=== PATIENT | female | born 1970 | race Caucasian/White ===

== ENCOUNTER 2017-09-21 11:38 | Day surgery (SDC) | payer BC ==
[~2017-09-21 11:38] MED LIST: Bisacodyl 5 MG Tab PO PRN; Ketorolac 30 MG/ML SDV ONE; Lactated Ringers 1,000 ML IV SCH; Lactated Ringers 1,000 ML ONE; Lidocaine 1%/Sod Bicarbonate in NS 8.4% 1 ML Syringe IV PRN; Magnesium Hydroxide 400 MG/5 ML Susp 30 ML Cup PO PRN; Midazolam 1 MG/ML 2 ML SDV ONE; Morphine 2 MG/ML Syringe IVPUSH PRN; Morphine 8 MG, EPINEPHrine 0.3 MG, Cefuroxime 750 MG, Ketorolac 30 MG, Sodium Chloride ... ONE; Morphine PF 1 MG/ML Amp ONE; Naloxone 0.4 MG/ML SDV IVPUSH PRN; Ondansetron 4 MG/2 ML SDV IVPUSH PRN; Propofol 200 MG/20 ML SDV ONE; Sennosides 8.6 MG Tab PO PRN; Sodium Chloride 0.9% 10 ML Syringe FLUSH PRN; ceFAZolin 1 GM Vial ONE; diphenhydrAMINE 50 MG/ML SDV IVPUSH PRN; fentaNYL 100 MCG/2 ML SDV ONE
[2017-09-21] MEDS ORDERED: Vancomycin 1 GM SDV ONE (11:56)
[2017-09-21] MEDS ORDERED: Iodine/Sodium Iodide 2% Tincture 30 ML Bottle ONE (11:57)
[2017-09-21] MEDS ORDERED: ceFAZolin 1 GM Vial ONE (11:57)
[2017-09-21] MEDS ORDERED: Bupivacaine 0.25% 30 ML SDV ONE (11:57)
[2017-09-21] MEDS ORDERED: Ketorolac 15 MG/ML SDV IVPUSH PRN (12:00)
--- NOTE | 2017-09-21 12:22 | PCM.PREANE ---
Preanesthetic Assessment - Anesthesia/Transfusion/Family Hx Anesthesia History: Prior Anesthesia Without Reaction Family History of Anesthesia Reaction: No Transfusion History: Prior Transfusion Without Reaction Intubation History: Unknown - Review of Systems General: No Symptoms Pulmonary: No Symptoms Cardiovascular: No Symptoms (History of HTN), Dyspnea on Exertion Gastrointestinal: No Symptoms (History of hiatal hernia/recent UTI treated with macrobid.) Neurological: No Symptoms Other: Reports: Thyroid Problems (history of hypothyroidism), Anxiety - Physical Assessment NPO Status Date: 09/20/17 NPO Status Time: 05:45 Pulse: 93 O2 Sat by Pulse Oximetry: 97 Respiratory Rate: 20 Blood Pressure: 115/88 Temperature: 36.9 C Height: 1.52 m Weight: 110 kg ASA Class: 2 Mental Status: Alert & Oriented x3 Airway Class: Mallampati = 3 Dentition: Reports: Normal Dentition, Missing Tooth/Teeth (left bottom), Caries Thyro-Mental Finger Breadths: 3 Mouth Opening Finger Breadths: 3 ROM/Head Extension: Full Lungs: Clear to Auscultation, Normal Respiratory Effort Cardiovascular: Regular Rate, Regular Rhythm, No Murmurs - Lab Values: Laboratory Last Values Urine HCG, Qual Negative (NEGATIVE) 09/21/17 11:48 MRSA screen negative. hgb= 12.4 hct=34.1 drpitivos=380,000 All lab values reviewed and noted and within acceptable ranges to proceed with scheduled procedure. - Imaging/EKG Impressions: EKG: SR rate= 99 - Allergies Allergies/Adverse Reactions: Allergies Allergy/AdvReac Type Severity Reaction Status Date / Time No Known Allergies Allergy Verified 09/18/17 11:57 - Anesthesia Plan Pre-Op Medication Ordered: None, Beta Paul Beta Paul: Other (bystolic) Med Last Dose Date: 09/20/17 Med Last Dose Time: 20:00 - Acknowledgements Anesthesia Type Planned: Spinal (Left femoral nerve block within adductor canal under US guidance for post operative pain control requested by Dr. 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: Endometrial Ablation, Endometriosis Musculoskeletal History: Reports: None Neurological History: Reports: None Psychiatric History: Reports: Anxiety, OCD Endocrine/Metabolic History: Reports: Hypothyroidism Hematologic History: Reports: None Immunologic History: Reports: None Oncologic (Cancer) History: Reports: None Dermatologic History: Reports: None - Past Surgical History Head Surgeries/Procedures: Reports: None HEENT Surgical History: Reports: Myringotomy w Tube(s) Cardiovascular Surgical History: Reports: None Respiratory Surgical History: Reports: None GI Surgical History: Reports: Cholecystectomy Female Surgical History: Reports: Section, Tubal Ligation Male Surgical History: Reports: None Endocrine Surgical History: Reports: None Neurological Surgical History: Reports: None Musculoskeletal Surgical History: Reports: Arthroscopic Knee Oncologic Surgical History: Reports: None Dermatological Surgical History: Reports: None - SUBSTANCE USE Smoking Status *Q: Never Smoker Second Hand Smoke Exposure: No Recreational Drug Use History: No - HOME MEDS Home Medications: Home Meds ALPRAZolam [Alprazolam] 1 mg PO BID PRN 09/18/17 [History] Levothyroxine [Synthroid] 50 mcg PO DAILY 09/18/17 [History] Nebivolol [Bystolic] 5 mg PO BEDTIME 09/18/17 [History] Zolpidem Tartrate [Zolpidem Tartrate] 10 mg PO BEDTIME 09/18/17 [History] - CURRENT (IN HOUSE) MEDS Current Meds: Current Medications Aspirin (Ecotrin) 325 mg PO BID WILFRID Bisacodyl (Dulcolax) 5 mg PO DAILY PRN PRN Reason: Constipation Cyclobenzaprine HCl (Flexeril) 10 mg PO TID PRN PRN Reason: Spasms Diphenhydramine HCl (Benadryl) 25 mg IVPUSH Q4H PRN PRN Reason: Nausea Docusate Sodium (Colace) 100 mg PO BID WILFRID Famotidine (Pepcid) 20 mg PO Q12H WILFRID Lactated Ringer's (Ringers, Lactated) 1,000 mls @ 125 mls/hr IV ASDIRECTED WILFRID Stop: 09/21/17 23:00 Cefazolin Sodium/Dextrose 2 gm (/ Premix) 50 mls @ 100 mls/hr IV Q8H WILFRID Stop: 09/22/17 08:29 Ketorolac Tromethamine (Toradol) 15 mg IVPUSH Q6H PRN PRN Reason: Pain Lidocaine/Sodium Bicarbonate (Buffered Lidocaine 1% In Ns 8.4%) 0.25 ml IV ONETIME PRN PRN Reason: Prior to IV Start Stop: 09/21/17 18:00 Magnesium Hydroxide (Milk Of Magnesia) 30 ml PO BID PRN PRN Reason: Constipation Morphine Sulfate (Morphine) 2 mg IVPUSH Q2H PRN PRN Reason: Breakthrough Pain Naloxone HCl (Narcan) 0.1 mg IVPUSH Q5M PRN PRN Reason: Oversedation Ondansetron HCl (Zofran) 4 mg IVPUSH Q6H PRN PRN Reason: Nausea/Vomiting Oxycodone/Acetaminophen (Percocet 325-5 Mg) 1 - 2 tab PO Q4H PRN PRN Reason: Pain Senna (Senna) 8.6 mg PO BID PRN PRN Reason: Constipation Sodium Chloride (Saline Flush) 10 ml FLUSH ASDIRECTED PRN PRN Reason: Keep Vein Open Stop: 09/21/17 18:00 Discontinued Medications Bupivacaine HCl (Marcaine 0.25%) Confirm Administered Dose 30 ml .ROUTE .STK- MED ONE Stop: 09/21/17 11:58 Cefazolin Sodium (Ancef) Confirm Administered Dose 2 gm .ROUTE .STK-MED ONE Stop: 09/21/17 07:49 Cefazolin Sodium (Ancef) Confirm Administered Dose 2 gm .ROUTE .STK-MED ONE Stop: 09/21/17 11:58 Morphine Sulfate 8 mg/Epinephrine HCl 0.3 mg/Cefuroxime Sodium 750 mg/Ketorolac Tromethamine 30 mg/Sodium Chloride 27.9 ml 0 mg .XX ONETIME ONE Stop: 09/21/17 06:53 Fentanyl (Sublimaze) Confirm Administered Dose 100 mcg .ROUTE .STK-MED ONE Stop: 09/21/17 07:49 Lidocaine HCl (Xylocaine-Mpf 1%) Confirm Administered Dose 10 mls @ as directed .ROUTE .STK-MED ONE Stop: 09/21/17 07:49 Lactated Ringer's (Ringers, Lactated) Confirm Administered Dose 1,000 mls @ as directed .ROUTE .STK-MED ONE Stop: 09/21/17 07:49 Iodine (Iodine 2% Mild Tincture) Confirm Administered Dose 30 ml .ROUTE .STK- MED ONE Stop: 09/21/17 11:58 Ketorolac Tromethamine (Toradol) Confirm Administered Dose 30 mg .ROUTE .STK- MED ONE Stop: 09/21/17 07:49 Midazolam HCl (Versed 1 Mg/Ml) Confirm Administered Dose 2 mg .ROUTE .STK-MED ONE Stop: 09/21/17 07:49 Morphine Sulfate (Duramorph Pf) Confirm Administered Dose 1 mg .ROUTE .STK-MED ONE Stop: 09/21/17 07:27 Propofol (Diprivan 20 Ml) Confirm Administered Dose 400 mg .ROUTE .STK-MED ONE Stop: 09/21/17 07:49 Tranexamic Acid (Cyklokapron) Confirm Administered Dose 1,000 mg .ROUTE .STK- MED ONE Stop: 09/21/17 11:57 Vancomycin HCl (Vancomycin) Confirm Administered Dose 1 gm .ROUTE .STK-MED ONE Stop: 09/21/17 11:57
[2017-09-21] MEDS ORDERED: Midazolam 1 MG/ML 2 ML SDV ONE (12:57)
[2017-09-21] MEDS ORDERED: Ondansetron 4 MG/2 ML SDV ONE (14:31)
[2017-09-21] MEDS ORDERED: Propofol 200 MG/20 ML SDV ONE ×2 (14:35→15:21)
[2017-09-21] MEDS ORDERED: Phenylephrine/Normal Saline 100 MCG/ML 10 ML Syringe ONE (14:53)
[2017-09-21] MEDS ORDERED: ALPRAZolam 1 MG Tab PO PRN (15:30)
[2017-09-21] MEDS ORDERED: Lactated Ringers 1,000 ML ONE (15:49)
[2017-09-21] MEDS ORDERED: EPINEPHrine 1 MG/ML SDV ONE (15:59)
[2017-09-21] MEDS ORDERED: Ropivacaine 0.5% 5 MG/ML 30 ML SDV ONE (15:59)
[2017-09-21] MEDS ORDERED: ceFAZolin 2 GM in Premix Bag 1 BAG IV SCH ×2 (16:00→22:00)
--- NOTE | 2017-09-21 16:01 | PCM.POSTAN ---
POST ANESTHESIA ASSESSMENT - MENTAL STATUS Mental Status: Alert - VITAL SIGNS Pulse Rate: 107 SaO2: 93 Resp Rate: 12 Blood Pressure: 124/66 Temperature: 36.8 C - RESPIRATORY Respiratory Status: Respiratory Rate WNL, Airway Patent, O2 Saturation Stable - CARDIOVASCULAR CV Status: Blood Pressure Stable, Elevated Pulse Rate - GASTROINTESTINAL GI Status: No Symptoms - PAIN Pain Score: 0 - POST OP HYDRATION Hydration Status: Adequate & Stable
[2017-09-21] MEDS ORDERED: diphenhydrAMINE 50 MG/ML SDV IVPUSH PRN (16:02)
[2017-09-21] MEDS ORDERED: Ondansetron 4 MG/2 ML SDV IVPUSH PRN (16:02)
--- NOTE | 2017-09-21 16:04 | PCM.CONS ---
H&P History of Present Illness - General Date of Service: 09/21/17 Admit Problem/Dx: Admission Diagnosis/Problem Admission Diagnosis/Problem Osteoarthritis of knee Source of Information: Patient, Old Records, Provider, RN, RN Notes Reviewed, Other (surgical notes ) - History of Present Illness Initial Comments - Free Text/Narative: Candi Feldman is a 46 yo female patient of Dr. Wood who is post-operative day 0 of left TKA. Hospital medicine was consulted for post-operative medical care. At this time she is resting comfortably in bed. Pain is completely absent. She denies any chest pain, shortness of breath, palpitations, nausea, or vomiting. She carries a history of: HTN, hiatal hernia, recurrent UTIs, endometriosis, anxiety, OCD, hypothyroidism. She was never a smoker. She is a full code. Her primary care provider is Marie De La Cruz nurse practitioner. Left Knee Pain Score (Numeric/FACES): 0 - Related Data Allergies/Adverse Reactions: Allergies Allergy/AdvReac Type Severity Reaction Status Date / Time No Known Allergies Allergy Verified 09/21/17 13:06 Home Medications: Home Meds ALPRAZolam [Alprazolam] 1 mg PO BID PRN 09/18/17 [History] Levothyroxine [Synthroid] 50 mcg PO DAILY 09/18/17 [History] Nebivolol [Bystolic] 5 mg PO BEDTIME 09/18/17 [History] Zolpidem Tartrate [Zolpidem Tartrate] 10 mg PO BEDTIME 09/18/17 [History] Cholecalciferol (Vitamin D3) [Vitamin D] 5,000 unit PO DAILY 09/21/17 [History] Past Medical History Cardiovascular History: Reports: Hypertension Respiratory History: Reports: None Gastrointestinal History: Reports: Hiatal Hernia Genitourinary History: Reports: UTI, 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: Endometrial Ablation, Endometriosis Musculoskeletal History: Reports: None Neurological History: Reports: None Psychiatric History: Reports: Anxiety, OCD Endocrine/Metabolic History: Reports: Hypothyroidism Hematologic History: Reports: None Immunologic History: Reports: None Oncologic (Cancer) History: Reports: None Dermatologic History: Reports: None - Past Surgical History Head Surgeries/Procedures: Reports: None HEENT Surgical History: Reports: Myringotomy w Tube(s) Cardiovascular Surgical History: Reports: None Respiratory Surgical History: Reports: None GI Surgical History: Reports: Cholecystectomy Female Surgical History: Reports: Section, Tubal Ligation Male Surgical History: Reports: None Endocrine Surgical History: Reports: None Neurological Surgical History: Reports: None Musculoskeletal Surgical History: Reports: Arthroscopic Knee Oncologic Surgical History: Reports: None Dermatological Surgical History: Reports: None Social & Family History - Family History Cardiac: Reports: [place], [place] - Tobacco Use Smoking Status *Q: Never Smoker Second Hand Smoke Exposure: No - Caffeine Use Caffeine Use: Reports: Tea - Recreational Drug Use Recreational Drug Use: No H&P Review of Systems - Review of Systems: Review Of Systems: See Below General: Reports: No Symptoms HEENT: Reports: No Symptoms Pulmonary: Reports: No Symptoms Cardiovascular: Reports: No Symptoms Gastrointestinal: Reports: No Symptoms Genitourinary: Reports: No Symptoms Musculoskeletal: Reports: Joint Pain (left knee, although absent now ) Skin: Reports: No Symptoms Psychiatric: Reports: No Symptoms Neurological: Reports: No Symptoms Hematologic/Lymphatic: Reports: No Symptoms Immunologic: Reports: No Symptoms Exam - Exam Exam: See Below - Vital Signs Vital Signs: Last Vital Signs Temp 98.3 F 09/21/17 16:01 Pulse 107 H 09/21/17 16:01 Resp 12 09/21/17 16:01 BP 124/66 09/21/17 16:01 Pulse Ox 93 L 09/21/17 16:01 Weight: 242 lb 8.136 oz - Exam Quality Assessment: DVT Prophylaxis General: Alert, Oriented, Cooperative HEENT: PERRLA, Hearing Intact, Mucosa Moist & [place], Nares Patent, Normal Nasal Septum, Posterior Pharynx Clear, Conjunctiva Clear, EOMI, EACs Clear, TMs Clear Neck: Supple. No: JVD, Thyromegaly Lungs: Clear to Auscultation, Normal Respiratory Effort Cardiovascular: Regular Rate, Regular Rhythm GI/Abdominal Exam: Normal Bowel Sounds, Soft, Non-Tender, No Organomegaly, No Distention, No Abnormal Bruit, No Mass, Pelvis Stable (Female) Exam: Deferred Rectal (Female) Exam: Deferred Back Exam: Normal Inspection, Full Range of Motion Extremities: Leg Pain (left knee ), Limited Range of Motion, Other (Messi bandage in place on left leg. Bandages dry and intact. Cooling pack in place.) Peripheral Pulses: 2+: Radial (L), Radial (R), Posterior Tibial (L), Posterior Tibial (R), Dorsalis Pedis (L), Dorsalis Pedis (R) Skin: Warm, Dry, Intact Neurological: Cranial Nerves Intact (grossly) Neuro Extensive - Mental Status: Alert, Oriented x3, Normal Mood/Affect, Normal Cognition, Memory Intact Psychiatric: Alert, Normal Affect, Normal Mood - Patient Data Lab Results Last 24 hrs: Laboratory Results - last 24 hr 09/21/17 Range/Units 11:48 Urine HCG, Qual Negative (NEGATIVE) Consult PN Assessment/Plan POD#: 0 Procedures: Procedures ASSAY OF TROPONIN QUANT (03/26/16) ASSAY THYROID STIM HORMONE (03/26/16) COMPLETE CBC W/AUTO DIFF WBC (03/26/16) COMPREHEN METABOLIC PANEL (03/26/16) ELECTROCARDIOGRAM TRACING (03/26/16) EMERGENCY DEPT VISIT (06/24/16) EMERGENCY DEPT VISIT (03/26/16) HYDRATE IV INFUSION ADD-ON (06/24/16) MR-STAPH DNA AMP PROBE (08/28/17) ROUTINE VENIPUNCTURE (03/26/16) THER/PROPH/DIAG IV INF INIT (06/24/16) TX/PRO/DX INJ NEW DRUG ADDON (06/24/16) URINALYSIS AUTO W/SCOPE (06/24/16) (1) S/P total knee arthroplasty SNOMED Code(s): 4693776684368, 6794368097479 Code(s): Z96.659 - PRESENCE OF UNSPECIFIED ARTIFICIAL KNEE JOINT Priority: High Current Visit: Yes Qualifiers: Laterality: left Qualified Code(s): Z96.652 - Presence of left artificial knee joint (2) Osteoarthritis SNOMED Code(s): 435920377 Code(s): M19.90 - UNSPECIFIED OSTEOARTHRITIS, UNSPECIFIED SITE Current Visit: Yes Qualifiers: Osteoarthritis location: knee Osteoarthritis type: primary Laterality: bilateral Qualified Code(s): M17.0 - Bilateral primary osteoarthritis of knee (3) HTN (hypertension) SNOMED Code(s): 10038445 Code(s): I10 - ESSENTIAL (PRIMARY) HYPERTENSION Priority: Low Current Visit: No Qualifiers: Hypertension type: unspecified Qualified Code(s): I10 - Essential (primary ) hypertension (4) Hypothyroidism SNOMED Code(s): 75693645 Code(s): E03.9 - HYPOTHYROIDISM, UNSPECIFIED Priority: Low Current Visit : No Qualifiers: Hypothyroidism type: unspecified Qualified Code(s): E03.9 - Hypothyroidism , unspecified (5) Anxiety SNOMED Code(s): 95688238 Code(s): F41.9 - ANXIETY DISORDER, UNSPECIFIED Priority: Low Current Visit: No (6) OCD (obsessive compulsive disorder) SNOMED Code(s): 721570221 Code(s): F42.9 - OBSESSIVE-COMPULSIVE DISORDER, UNSPECIFIED Priority: Low Current Visit: No Qualifiers: Obsessive-compulsive disorder type: unspecified Qualified Code(s): F42.9 - Obsessive-compulsive disorder, unspecified Problem List Initiated/Reviewed/Updated: Yes Plan: I/P: Acute: S/P left total knee arthroplasty - post-operative day 0 -DVT prophylaxis and pain management per primary care team -PT/OT -IS/RT -Monitor oxygen saturation -Titrate oxygen as needed -Vital signs stable -Monitor labs Osteoarthritis of bilateral knees -Pain management per primary care team Chronic: HTN - home coreg Recurrent UTIs Endometrial ablation Endometriosis Anxiety - home meds OCD Hypothyroidism - home levothyroxine Plan: CM for discharge planning GI prophylaxis Home medications as indicated Other orders as listed above Routine AM labs She is a full code. Her PCP is Marie De La Cruz, nurse practitioner Thank you for allowing us to participate in the care of this patient!! Total time spent with patient 30 minutes Requesting Provider: Dr. Wood Date Consult Requested: 09/21/17 Reason for Consult: Post-operative medical care Patient History Reviewed: Yes Admission H&P Reviewed: Yes Time Spent (in minutes): 35
--- NOTE | 2017-09-21 16:48 | PCM.SN ---
- Free Text/Narrative Note: Left selective femoral nerve block at the adductor canal for post-procedure pain control Start: 162 Time out: 1620 End: 163 Chart reviewed. Consent signed. Questions answered. Appropriate monitors applied. Time out performed. Left mid-shaft femur evaluated with ultrasound. Scanning medially femur, I was able to identify the femoral artery in the adductor canal. The saphenous nerve was lateral to the artery. The skin was prepped lateral to the ultrasound probe with chlorahexadine. The 21ga 4 insulated block needle was inserted under direct ultrasound guidance into the adductor canal. 20mL of 0.5% ropivacaine with 1:200,000 epinephrine was injected cirmcumferentially about the nerve with intermittent negative aspiration. Patient tolerated the procedure well. See pictures on progress note and vital signs on nurses notes. Block completed post-operatively in recovery. Henry Karimi CRNA
[2017-09-21] MEDS ORDERED: Carvedilol 3.125 MG Tab PO SCH (17:00)
--- NOTE | 2017-09-21 17:48 | CR ---
Left knee: Two views of the left knee were obtained. Comparison: No prior study. Left knee prosthesis is seen. Soft tissue air is noted from the surgical procedure. Very small lucency is seen to extend under a small portion of the distal anterior cortex of the femur which is believed to be incidental. No additional bony abnormality is seen. Impression: 1. Recently placed left knee prosthesis. Findings felt to be incidental as noted above. Diagnostic code #2
[2017-09-21] MEDS ORDERED: ZOLPIDEM 10 MG PO SCH (21:00)
[2017-09-21] MEDS ORDERED: BYSTOLIC 5 MG PO SCH (21:00)
[2017-09-21] MEDS ORDERED: Levothyroxine 50 MCG Tab**OWN MED PO SCH (21:00)
[2017-09-21] MEDS: ceFAZolin 2 GM in Premix Bag 1 BAG IV SCH (22:01)
[2017-09-21] MEDS: Cyclobenzaprine 10 MG Tab PO PRN (22:09)
[2017-09-21] MEDS: Famotidine 20 MG Tab PO SCH (22:11)
[2017-09-21] MEDS: Docusate Sodium 100 MG Cap PO SCH (22:11)
[2017-09-22] MEDS: Acetaminophen/oxyCODONE 325-5 MG Tab PO PRN ×3 (05:15→13:46)
[2017-09-22] MEDS: Cyclobenzaprine 10 MG Tab PO PRN ×2 (05:18→12:43)
[2017-09-22] MEDS: ceFAZolin 2 GM in Premix Bag 1 BAG IV SCH ×2 (05:18→13:49)
--- NOTE | 2017-09-22 06:43 | PCM.CONSN ---
- General Info Date of Service: 09/22/17 Admission Dx/Problem (Free Text): Admission Diagnosis/Problem Admission Diagnosis/Problem Osteoarthritis of knee POD #1, Lt TKA with Dr. Wood. Pain under fair control, she did undergo left femoral nerve block in recovery yesterday per [employer]. No n/v. Voiding s/p muhammad removal VSS on RA Plans DC home today Functional Status: Reports: Pain Controlled, Tolerating Diet, Ambulating, Urinating, Incentive Spirometry - Review of Systems General: Reports: No Symptoms HEENT: Reports: No Symptoms Pulmonary: Reports: No Symptoms Cardiovascular: Reports: No Symptoms Gastrointestinal: Reports: No Symptoms Genitourinary: Reports: No Symptoms Musculoskeletal: Reports: Leg Pain Skin: Reports: No Symptoms Neurological: Reports: No Symptoms Psychiatric: Reports: No Symptoms - Patient Data Vitals - Most Recent: Last Vital Signs Temp 97.8 F 09/22/17 03:00 Pulse 96 09/22/17 02:00 Resp 20 09/22/17 06:00 BP 114/48 L 09/22/17 03:00 Pulse Ox 98 09/22/17 06:00 Weight - Most Recent: 242 lb 8.136 oz I&O - Last 24 Hours: Intake & Output 09/21/17 09/21/17 09/22/17 14:59 22:59 06:59 Intake Total 600 Output Total 450 Balance 150 Lab Results Last 24 Hours: Laboratory Results - last 24 hr 09/21/17 Range/Units 11:48 Urine HCG, Qual Negative (NEGATIVE) Med Orders - Current: Current Medications Alprazolam (Xanax) 1 mg PO BID PRN PRN Reason: Anxiety Aspirin (Ecotrin) 325 mg PO BID [facility] Bisacodyl (Dulcolax) 5 mg PO DAILY PRN PRN Reason: Constipation Cholecalciferol (Vitamin D3) 5,000 units PO DAILY [facility] Cyclobenzaprine HCl (Flexeril) 10 mg PO TID PRN PRN Reason: Spasms Last Admin: 09/22/17 05:18 Dose: 10 mg Diphenhydramine HCl (Benadryl) 25 mg IVPUSH Q4H PRN PRN Reason: Nausea Diphenhydramine HCl (Benadryl) 12.5 mg IVPUSH Q6H PRN PRN Reason: pruritis Last Admin: 09/21/17 17:57 Dose: 12.5 mg Docusate Sodium (Colace) 100 mg PO BID [facility] Last Admin: 09/21/17 22:11 Dose: 100 mg Famotidine (Pepcid) 20 mg PO Q12H [facility] Last Admin: 09/21/17 22:11 Dose: 20 mg Cefazolin Sodium/Dextrose 2 gm (/ Premix) 50 mls @ 100 mls/hr IV Q8H [facility] Stop: 09/22/17 14:29 Last Admin: 09/22/17 05:18 Dose: 100 mls/hr Ketorolac Tromethamine (Toradol) 15 mg IVPUSH Q6H PRN PRN Reason: Pain Levothyroxine Sodium (Synthroid) 50 mcg PO BEDTIME [facility] Last Admin: 09/21/17 22:15 Dose: 50 mcg Magnesium Hydroxide (Milk Of Magnesia) 30 ml PO BID PRN PRN Reason: Constipation Morphine Sulfate (Morphine) 2 mg IVPUSH Q2H PRN PRN Reason: Breakthrough Pain Naloxone HCl (Narcan) 0.1 mg IVPUSH Q5M PRN PRN Reason: Oversedation Bystolic (Nebivolol) (5 Mg TabOwn Med) 1 each PO BEDTIME [facility] Last Admin: 09/21/17 21:15 Dose: 1 each Ondansetron HCl (Zofran) 4 mg IVPUSH Q6H PRN PRN Reason: Nausea/Vomiting Ondansetron HCl (Zofran) 4 mg IVPUSH ONETIME PRN PRN Reason: Nausea/Vomiting Oxycodone/Acetaminophen (Percocet 325-5 Mg) 1 - 2 tab PO Q4H PRN PRN Reason: Pain Last Admin: 09/22/17 05:15 Dose: 2 tab Senna (Senna) 8.6 mg PO BID PRN PRN Reason: Constipation Zolpidem Tartrate (Ambien) 10 mg PO BEDTIME [facility] Last Admin: 09/21/17 22:43 Dose: 10 mg Discontinued Medications Bupivacaine HCl (Marcaine 0.25%) Confirm Administered Dose 30 ml .ROUTE .STK- MED ONE Stop: 09/21/17 11:58 Last Admin: 09/21/17 15:16 Dose: 30 ml Carvedilol (Coreg) 3.125 mg PO BIDMEALS [facility] Last Admin: 09/21/17 20:30 Dose: 3.125 mg Cefazolin Sodium (Ancef) Confirm Administered Dose 2 gm .ROUTE .STK-MED ONE Stop: 09/21/17 07:49 Last Admin: 09/21/17 15:02 Dose: 2 gm Cefazolin Sodium (Ancef) Confirm Administered Dose 2 gm .ROUTE .STK-MED ONE Stop: 09/21/17 11:58 Morphine Sulfate 8 mg/Epinephrine HCl 0.3 mg/Cefuroxime Sodium 750 mg/Ketorolac Tromethamine 30 mg/Sodium Chloride 27.9 ml 0 mg .XX ONETIME ONE Stop: 09/21/17 06:53 Last Admin: 09/21/17 15:13 Dose: 788.3 mg Epinephrine HCl (Adrenalin) Confirm Administered Dose 1 mg .ROUTE .[facility] ONE Stop: 09/21/17 16:00 Fentanyl (Sublimaze) Confirm Administered Dose 100 mcg .ROUTE .[facility] ONE Stop: 09/21/17 07:49 Lactated Ringer's (Ringers, Lactated) 1,000 mls @ 125 mls/hr IV ASDIRECTED [facility] Stop: 09/21/17 23:00 Last Admin: 09/21/17 12:17 Dose: 125 mls/hr Cefazolin Sodium/Dextrose 2 gm (/ Premix) 50 mls @ 100 mls/hr IV Q8H [facility] Stop: 09/22/17 08:29 Lidocaine HCl (Xylocaine-Mpf 1%) Confirm Administered Dose 10 mls @ as directed .ROUTE .[facility] ONE Stop: 09/21/17 07:49 Lactated Ringer's (Ringers, Lactated) Confirm Administered Dose 1,000 mls @ as directed .ROUTE .ST-MED ONE Stop: 09/21/17 07:49 Lactated Ringer's (Ringers, Lactated) Confirm Administered Dose 1,000 mls @ as directed .ROUTE .[facility] Stop: 09/21/17 15:50 Iodine (Iodine 2% Mild Tincture) Confirm Administered Dose 30 ml .ROUTE .STK- [facility] ONE Stop: 09/21/17 11:58 Last Admin: 09/21/17 15:00 Dose: 18 ml Ketorolac Tromethamine (Toradol) Confirm Administered Dose 30 mg .ROUTE .STK- MED ONE Stop: 09/21/17 07:49 Lidocaine/Sodium Bicarbonate (Buffered Lidocaine 1% In Ns 8.4%) 0.25 ml IV ONETIME PRN PRN Reason: Prior to IV Start Stop: 09/21/17 18:00 Last Admin: 09/21/17 12:16 Dose: 0.25 ml Midazolam HCl (Versed 1 Mg/Ml) Confirm Administered Dose 2 mg .ROUTE .STK-MED ONE Stop: 09/21/17 07:49 Midazolam HCl (Versed 1 Mg/Ml) Confirm Administered Dose 2 mg .ROUTE .STK-MED ONE Stop: 09/21/17 12:58 Morphine Sulfate (Duramorph Pf) Confirm Administered Dose 1 mg .ROUTE .STK-MED ONE Stop: 09/21/17 07:27 Ondansetron HCl (Zofran) Confirm Administered Dose 4 mg .ROUTE .STK-MED ONE Stop: 09/21/17 14:32 Phenylephrine HCl (Phenylephrine In Ns 100 Mcg/Ml) Confirm Administered Dose 1 mg .ROUTE .ST-MED ONE Stop: 09/21/17 14:54 Propofol (Diprivan 20 Ml) Confirm Administered Dose 400 mg .ROUTE .STK-MED ONE Stop: 09/21/17 07:49 Propofol (Diprivan 20 Ml) Confirm Administered Dose 600 mg .ROUTE .STK-MED ONE Stop: 09/21/17 14:36 Propofol (Diprivan 20 Ml) Confirm Administered Dose 200 mg .ROUTE .STK-MED ONE Stop: 09/21/17 15:22 Ropivacaine (Naropin 0.5%) Confirm Administered Dose 30 ml .ROUTE .ST-MED ONE Stop: 09/21/17 16:00 Sodium Chloride (Saline Flush) 10 ml FLUSH ASDIRECTED PRN PRN Reason: Keep Vein Open Stop: 09/21/17 18:00 Tranexamic Acid (Cyklokapron) Confirm Administered Dose 1,000 mg .ROUTE .ST- MED ONE Stop: 09/21/17 11:57 Last Admin: 09/21/17 15:15 Dose: 1,000 mg Vancomycin HCl (Vancomycin) Confirm Administered Dose 1 gm .ROUTE .STK-MED ONE Stop: 09/21/17 11:57 Last Admin: 09/21/17 15:15 Dose: 1 gm - Exam Quality Assessment: DVT Prophylaxis General: Alert, Oriented, Cooperative, No Acute Distress HEENT: Pupils Equal, EOMI, Mucous Membr. Moist/[place] Neck: Supple Lungs: Clear to Auscultation, Normal Respiratory Effort Cardiovascular: Regular Rate, Regular Rhythm GI/Abdominal Exam: Normal Bowel Sounds, Soft, Non-Tender (Female) Exam: Deferred Extremities: Other (ice, teds to lt knee) Peripheral Pulses: 2+: Dorsalis Pedis (L), Dorsalis Pedis (R) Neurological: No New Focal Deficit Psy/Mental Status: Alert, Normal Affect, Normal Mood Consult PN Assessment/Plan POD#: 1 Procedures: Procedures ASSAY OF TROPONIN QUANT (03/26/16) ASSAY THYROID STIM HORMONE (03/26/16) COMPLETE CBC W/AUTO DIFF WBC (03/26/16) COMPREHEN METABOLIC PANEL (03/26/16) ELECTROCARDIOGRAM TRACING (03/26/16) EMERGENCY DEPT VISIT (06/24/16) EMERGENCY DEPT VISIT (03/26/16) HYDRATE IV INFUSION ADD-ON (06/24/16) MR-STAPH DNA AMP PROBE (08/28/17) ROUTINE VENIPUNCTURE (03/26/16) THER/PROPH/DIAG IV INF INIT (06/24/16) TX/PRO/DX INJ NEW DRUG ADDON (06/24/16) URINALYSIS AUTO W/SCOPE (06/24/16) (1) S/P total knee arthroplasty SNOMED Code(s): 5480793268856, 3708305790281 Code(s): Z96.659 - PRESENCE OF UNSPECIFIED ARTIFICIAL KNEE JOINT Priority: High Current Visit: Yes Qualifiers: Laterality: left Qualified Code(s): Z96.652 - Presence of left artificial knee joint (2) Osteoarthritis SNOMED Code(s): 552098116 Code(s): M19.90 - UNSPECIFIED OSTEOARTHRITIS, UNSPECIFIED SITE Priority: High Current Visit: Yes Qualifiers: Osteoarthritis location: knee Osteoarthritis type: primary Laterality: bilateral Qualified Code(s): M17.0 - Bilateral primary osteoarthritis of knee Problem List Initiated/Reviewed/Updated: Yes Plan: I/P: S/P Lt TKA, POD #1--doing very well -Pain management and DVT prophylax per primary team/Ortho -PT/OT -RT/IS -Am hgb stable at 10.2 -VSS, on RA Chronic conditions: Stable --thyroid disease and anxiety Other: GI Prophylax CM for assist with DC planning: Plans dc home today; OK from Hospitalist standpoint for DC home today- reviewed recommendations and plan with Ortho team. Patient is Full Code status. PCP is KEVIN Moscoso with [facility] in [place].
--- NOTE | 2017-09-22 08:10 | PCM48HPAN ---
Post Anesthesia Note - EVALUATION WITHIN 48HRS OF ANESTHETIC Vital Signs in Normal Range: Yes Patient Participated in Evaluation: Yes Respiratory Function Stable: Yes Airway Patent: Yes Cardiovascular Function Stable: Yes Hydration Status Stable: Yes Pain Control Satisfactory: Yes Nausea and Vomiting Control Satisfactory: Yes Mental Status Recovered: Yes - COMMENTS/OBSERVATIONS Free Text/Narrative:: Patient stated she rested mostly all night. Did not have any pain until approximately 0430 this am. Doing well resting in bed. Did have some insignificant pruritus.
[2017-09-22] MEDS ORDERED: Cholecalciferol (Vitamin D3) 1,000 Unit Tab PO SCH (09:00)
[2017-09-22] MEDS ORDERED: Aspirin 325 MG Tab.EC PO SCH (09:00)
[2017-09-22] MEDS: Famotidine 20 MG Tab PO SCH (09:52)
[2017-09-22] MEDS: Docusate Sodium 100 MG Cap PO SCH (09:52)
[2017-09-22] MEDS ORDERED: Potassium Chloride 20 MEQ Tab.ER PO SCH (10:00)
--- NOTE | 2017-09-22 12:32 | PCM.SURGPN ---
- General Info Date of Service: 09/22/17 POD#: 1 Functional Status: Reports: Pain Controlled, Tolerating Diet, Ambulating, Urinating, Incentive Spirometry - Review of Systems Musculoskeletal: Reports: Other (The pt feels prepared for discharge to home.) - Patient Data Vitals - Most Recent: Last Vital Signs Temp 98.1 F 09/22/17 08:00 Pulse 81 09/22/17 10:00 Resp 17 09/22/17 10:00 BP 108/60 09/22/17 08:00 Pulse Ox 97 09/22/17 10:00 Weight - Most Recent: 242 lb 8.136 oz I&O - Last 24 Hours: Intake & Output 09/21/17 09/22/17 09/22/17 22:59 06:59 14:59 Intake Total 720 180 Output Total 450 Balance 270 180 Lab Results Last 24 Hrs: Laboratory Results - last 24 hr 09/22/17 09/22/17 Range/Units 05:56 05:56 WBC 8.83 (3.98-10.04) K/mm3 RBC 3.32 L (3.98-5.22) M/mm3 Hgb 10.2 L (11.2-15.7) gm/L Hct 29.3 L (34.1-44.9) % MCV 88.3 (79.4-94.8) fl MCH 30.7 (25.6-32.2) pg MCHC 34.8 (32.2-35.5) g/dl RDW Std Deviation 53.8 H (36.4-46.3) fL Plt Count 188 (182-369) K/mm3 MPV 9.4 (9.4-12.3) fl Sodium 138 (136-145) mEq/L Potassium 3.4 L (3.5-5.1) mEq/L Chloride 105 (98-107) mEq/L Carbon Dioxide 25 (21-32) mEq/L Anion Gap 11.4 (5-15) BUN 11 (7-18) mg/dL Creatinine 0.7 (0.55-1.02) mg/dL Est Cr Clr Drug Dosing 72.90 mL/min Estimated GFR (MDRD) > 60 (>60) mL/min BUN/Creatinine Ratio 15.7 (14-18) Glucose 103 (74-106) mg/dL Calcium 8.3 L (8.5-10.1) mg/dL Total Bilirubin 1.4 H (0.2-1.0) mg/dL AST 15 (15-37) U/L ALT 18 (14-59) U/L Alkaline Phosphatase 62 (46-116) U/L Total Protein 5.6 L (6.4-8.2) g/dl Albumin 3.0 L (3.4-5.0) g/dl Globulin 2.6 gm/dL Albumin/Globulin Ratio 1.2 (1-2) Med Orders - Current: Current Medications Alprazolam (Xanax) 1 mg PO BID PRN PRN Reason: Anxiety Aspirin (Ecotrin) 325 mg PO BID [facility] Last Admin: 09/22/17 09:52 Dose: 325 mg Bisacodyl (Dulcolax) 5 mg PO DAILY PRN PRN Reason: Constipation Cholecalciferol (Vitamin D3) 5,000 units PO DAILY [facility] Last Admin: 09/22/17 09:53 Dose: 5,000 units Cyclobenzaprine HCl (Flexeril) 10 mg PO TID PRN PRN Reason: Spasms Last Admin: 09/22/17 05:18 Dose: 10 mg Diphenhydramine HCl (Benadryl) 25 mg IVPUSH Q4H PRN PRN Reason: Nausea Docusate Sodium (Colace) 100 mg PO BID [facility] Last Admin: 09/22/17 09:52 Dose: 100 mg Famotidine (Pepcid) 20 mg PO Q12H [facility] Last Admin: 09/22/17 09:52 Dose: 20 mg Cefazolin Sodium/Dextrose 2 gm (/ Premix) 50 mls @ 100 mls/hr IV Q8H [facility] Stop: 09/22/17 14:29 Last Admin: 09/22/17 05:18 Dose: 100 mls/hr Ketorolac Tromethamine (Toradol) 15 mg IVPUSH Q6H PRN PRN Reason: Pain Last Admin: 09/22/17 09:55 Dose: 15 mg Levothyroxine Sodium (Synthroid) 50 mcg PO BEDTIME [facility] Last Admin: 09/21/17 22:15 Dose: 50 mcg Magnesium Hydroxide (Milk Of Magnesia) 30 ml PO BID PRN PRN Reason: Constipation Morphine Sulfate (Morphine) 2 mg IVPUSH Q2H PRN PRN Reason: Breakthrough Pain Naloxone HCl (Narcan) 0.1 mg IVPUSH Q5M PRN PRN Reason: Oversedation Ondansetron HCl (Zofran) 4 mg IVPUSH Q6H PRN PRN Reason: Nausea/Vomiting Oxycodone/Acetaminophen (Percocet 325-5 Mg) 1 - 2 tab PO Q4H PRN PRN Reason: Pain Last Admin: 09/22/17 09:53 Dose: 2 tab Bystolic (Nebivolol) (5 Mg TabOwn Med) 0 each PO BEDTIME [facility] Potassium Chloride (Klor-Con M20) 40 meq PO DAILY [facility] Last Admin: 09/22/17 10:57 Dose: 40 meq Senna (Senna) 8.6 mg PO BID PRN PRN Reason: Constipation Zolpidem Tartrate (Ambien) 10 mg PO BEDTIME [facility] Last Admin: 09/21/17 22:43 Dose: 10 mg Discontinued Medications Bupivacaine HCl (Marcaine 0.25%) Confirm Administered Dose 30 ml .ROUTE .STK- MED ONE Stop: 09/21/17 11:58 Last Admin: 09/21/17 15:16 Dose: 30 ml Carvedilol (Coreg) 3.125 mg PO BIDMEALS [facility] Last Admin: 09/21/17 20:30 Dose: 3.125 mg Cefazolin Sodium (Ancef) Confirm Administered Dose 2 gm .ROUTE .STK-MED ONE Stop: 09/21/17 07:49 Last Admin: 09/21/17 15:02 Dose: 2 gm Cefazolin Sodium (Ancef) Confirm Administered Dose 2 gm .ROUTE .STK-MED ONE Stop: 09/21/17 11:58 Morphine Sulfate 8 mg/Epinephrine HCl 0.3 mg/Cefuroxime Sodium 750 mg/Ketorolac Tromethamine 30 mg/Sodium Chloride 27.9 ml 0 mg .XX ONETIME ONE Stop: 09/21/17 06:53 Last Admin: 09/21/17 15:13 Dose: 788.3 mg Diphenhydramine HCl (Benadryl) 12.5 mg IVPUSH Q6H PRN PRN Reason: pruritis Last Admin: 09/21/17 17:57 Dose: 12.5 mg Epinephrine HCl (Adrenalin) Confirm Administered Dose 1 mg .ROUTE .STK-MED ONE Stop: 09/21/17 16:00 Fentanyl (Sublimaze) Confirm Administered Dose 100 mcg .ROUTE .STK-MED ONE Stop: 09/21/17 07:49 Lactated Ringer's (Ringers, Lactated) 1,000 mls @ 125 mls/hr IV ASDIRECTED [facility] Stop: 09/21/17 23:00 Last Admin: 09/21/17 12:17 Dose: 125 mls/hr Cefazolin Sodium/Dextrose 2 gm (/ Premix) 50 mls @ 100 mls/hr IV Q8H [facility] Stop: 09/22/17 08:29 Last Admin: 09/22/17 07:40 Dose: Not Given Lidocaine HCl (Xylocaine-Mpf 1%) Confirm Administered Dose 10 mls @ as directed .ROUTE .STK-MED ONE Stop: 09/21/17 07:49 Lactated Ringer's (Ringers, Lactated) Confirm Administered Dose 1,000 mls @ as directed .ROUTE .STK-MED ONE Stop: 09/21/17 07:49 Lactated Ringer's (Ringers, Lactated) Confirm Administered Dose 1,000 mls @ as directed .ROUTE .STK-MED ONE Stop: 09/21/17 15:50 Iodine (Iodine 2% Mild Tincture) Confirm Administered Dose 30 ml .ROUTE .STK- MED ONE Stop: 09/21/17 11:58 Last Admin: 09/21/17 15:00 Dose: 18 ml Ketorolac Tromethamine (Toradol) Confirm Administered Dose 30 mg .ROUTE .STK- MED ONE Stop: 09/21/17 07:49 Lidocaine/Sodium Bicarbonate (Buffered Lidocaine 1% In Ns 8.4%) 0.25 ml IV ONETIME PRN PRN Reason: Prior to IV Start Stop: 09/21/17 18:00 Last Admin: 09/21/17 12:16 Dose: 0.25 ml Midazolam HCl (Versed 1 Mg/Ml) Confirm Administered Dose 2 mg .ROUTE .STK-MED ONE Stop: 09/21/17 07:49 Midazolam HCl (Versed 1 Mg/Ml) Confirm Administered Dose 2 mg .ROUTE .STK-MED ONE Stop: 09/21/17 12:58 Morphine Sulfate (Duramorph Pf) Confirm Administered Dose 1 mg .ROUTE .STK-MED ONE Stop: 09/21/17 07:27 Bystolic (Nebivolol) (5 Mg TabOwn Med) 1 each PO BEDTIME [facility] Last Admin: 09/21/17 21:15 Dose: 1 each Ondansetron HCl (Zofran) Confirm Administered Dose 4 mg .ROUTE .STK-MED ONE Stop: 09/21/17 14:32 Ondansetron HCl (Zofran) 4 mg IVPUSH ONETIME PRN PRN Reason: Nausea/Vomiting Phenylephrine HCl (Phenylephrine In Ns 100 Mcg/Ml) Confirm Administered Dose 1 mg .ROUTE .STK-MED ONE Stop: 09/21/17 14:54 Propofol (Diprivan 20 Ml) Confirm Administered Dose 400 mg .ROUTE .STK-MED ONE Stop: 09/21/17 07:49 Propofol (Diprivan 20 Ml) Confirm Administered Dose 600 mg .ROUTE .STK-MED ONE Stop: 09/21/17 14:36 Propofol (Diprivan 20 Ml) Confirm Administered Dose 200 mg .ROUTE .STK-MED ONE Stop: 09/21/17 15:22 Ropivacaine (Naropin 0.5%) Confirm Administered Dose 30 ml .ROUTE .STK-MED ONE Stop: 09/21/17 16:00 Sodium Chloride (Saline Flush) 10 ml FLUSH ASDIRECTED PRN PRN Reason: Keep Vein Open Stop: 09/21/17 18:00 Tranexamic Acid (Cyklokapron) Confirm Administered Dose 1,000 mg .ROUTE .STK- MED ONE Stop: 09/21/17 11:57 Last Admin: 09/21/17 15:15 Dose: 1,000 mg Vancomycin HCl (Vancomycin) Confirm Administered Dose 1 gm .ROUTE .STK-MED ONE Stop: 09/21/17 11:57 Last Admin: 09/21/17 15:15 Dose: 1 gm - Exam Wound/Incisions: Dressing Dry and Intact General: Alert, Cooperative, No Acute Distress Lungs: Normal Respiratory Effort Extremities: Other (NVS intact for LLE. Linette's negative.) - Problem List Review Problem List Initiated/Reviewed/Updated: Yes - My Orders Last 24 Hours: Active Orders 24 hr Category Date Time Status Communication Order [RC] ASDIRECTED Care 09/21/17 16:02 Active Oxygen Therapy [RC] ASDIRECTED Care 09/21/17 16:02 Active Ready for Discharge [RC] PER UNIT ROUTINE Care 09/22/17 12:30 Ordered Vital Signs [RC] Q1H Care 09/21/17 16:01 Active Regular Diet [DIET] Diet 09/21/17 Dinner Active ALPRAZolam [Xanax] Med 09/21/17 15:30 Active 1 mg PO BID PRN Aspirin [Ecotrin] Med 09/22/17 09:00 Active 325 mg PO BID Cholecalciferol (Vitamin D3) [Vitamin D3] Med 09/22/17 09:00 Active 5,000 units PO DAILY Docusate Sodium [Colace] Med 09/21/17 21:00 Active 100 mg PO BID Famotidine [Pepcid] Med 09/21/17 21:00 Active 20 mg PO Q12H Ketorolac [Toradol] Med 09/21/17 12:00 Active 15 mg IVPUSH Q6H PRN Levothyroxine [Synthroid] Med 09/21/17 21:00 Active 50 mcg PO BEDTIME Patient's Own Medication [Ptom] Med 09/22/17 21:00 Active 0 each PO BEDTIME Potassium Chloride [Klor-Con M20] Med 09/22/17 10:00 Active 40 meq PO DAILY Zolpidem [Ambien] Med 09/21/17 21:00 Active 10 mg PO BEDTIME ceFAZolin [Ancef] 2 gm Med 09/21/17 22:00 Active Premix Bag 1 bag IV Q8H Pulse Oximetry Continuous Monitoring [OM.PC] Routine Oth 09/21/17 16:02 Active Medication Orders Alprazolam (Xanax) 1 mg PO BID PRN PRN Reason: Anxiety Aspirin (Ecotrin) 325 mg PO BID [facility] Last Admin: 09/22/17 09:52 Dose: 325 mg Bisacodyl (Dulcolax) 5 mg PO DAILY PRN PRN Reason: Constipation Cholecalciferol (Vitamin D3) 5,000 units PO DAILY [facility] Last Admin: 09/22/17 09:53 Dose: 5,000 units Cyclobenzaprine HCl (Flexeril) 10 mg PO TID PRN PRN Reason: Spasms Last Admin: 09/22/17 05:18 Dose: 10 mg Admin: 09/21/17 22:09 Dose: 10 mg Diphenhydramine HCl (Benadryl) 25 mg IVPUSH Q4H PRN PRN Reason: Nausea Docusate Sodium (Colace) 100 mg PO BID [facility] Last Admin: 09/22/17 09:52 Dose: 100 mg Admin: 09/21/17 22:11 Dose: 100 mg Famotidine (Pepcid) 20 mg PO Q12H [facility] Last Admin: 09/22/17 09:52 Dose: 20 mg Admin: 09/21/17 22:11 Dose: 20 mg Cefazolin Sodium/Dextrose 2 gm (/ Premix) 50 mls @ 100 mls/hr IV Q8H [facility] Stop: 09/22/17 14:29 Last Admin: 09/22/17 05:18 Dose: 100 mls/hr Infusion: 09/21/17 22:31 Dose: 100 mls/hr Admin: 09/21/17 22:01 Dose: 100 mls/hr Ketorolac Tromethamine (Toradol) 15 mg IVPUSH Q6H PRN PRN Reason: Pain Last Admin: 09/22/17 09:55 Dose: 15 mg Levothyroxine Sodium (Synthroid) 50 mcg PO BEDTIME [facility] Last Admin: 09/21/17 22:15 Dose: 50 mcg Magnesium Hydroxide (Milk Of Magnesia) 30 ml PO BID PRN PRN Reason: Constipation Morphine Sulfate (Morphine) 2 mg IVPUSH Q2H PRN PRN Reason: Breakthrough Pain Naloxone HCl (Narcan) 0.1 mg IVPUSH Q5M PRN PRN Reason: Oversedation Ondansetron HCl (Zofran) 4 mg IVPUSH Q6H PRN PRN Reason: Nausea/Vomiting Oxycodone/Acetaminophen (Percocet 325-5 Mg) 1 - 2 tab PO Q4H PRN PRN Reason: Pain Last Admin: 09/22/17 09:53 Dose: 2 tab Admin: 09/22/17 05:15 Dose: 2 tab Bystolic (Nebivolol) (5 Mg TabOwn Med) 0 each PO BEDTIME [facility] Potassium Chloride (Klor-Con M20) 40 meq PO DAILY [facility] Last Admin: 09/22/17 10:57 Dose: 40 meq Senna (Senna) 8.6 mg PO BID PRN PRN Reason: Constipation Zolpidem Tartrate (Ambien) 10 mg PO BEDTIME [facility] Last Admin: 09/21/17 22:43 Dose: 10 mg - Assessment Assessment (Free Text/Narrative):: POD#1 - left TKA - Plan Plan (Free Text/Narrative):: 1. Discharge to home today. 2. 325mg ASA BID. Frequent mobility, TEDs. 3. Hgb 10.2. 4. Outpatient P.T. The pt's case was discussed with Dr. Wood.
[2017-09-22 13:52] VITALS: BP 111/58
[2017-09-22] MEDS ORDERED: BYSTOLIC 5 MG PO SCH (21:00)
--- NOTE | 2017-09-24 07:59 | PCM.OPNOTE ---
- General Post-Op/Procedure Note Date of Surgery/Procedure: 09/21/17 Operative Procedure(s): left total knee arthroplasty Pre Op Diagnosis: left knee osteoarthrosis Post-Op Diagnosis: Same Anesthesia Technique: Local, MAC, Spinal Primary Surgeon: Sean Wood Anesthesia Provider: Elda Woods [employer]uxiliary Power Equipment Operator: Tawny Benitez Auxiliary Power Equipment Operator: Anjelica Flor EBL in mLs: 200 Complications: None Condition: Good Free Text/Narrative:: size 2 press fit femur CR size 2 press fit tibia 9mm CS 27x8 cemented patella
--- NOTE | 2017-09-24 09:41 | OR ---
DATE OF OPERATION: 09/21/2017 SURGEON: Sean Wood MD OPERATION PERFORMED: Left total knee arthroplasty. PREOPERATIVE DIAGNOSIS: Left knee osteoarthrosis. POSTOPERATIVE DIAGNOSIS: Left knee osteoarthrosis. ANESTHESIA: Local MAC with spinal. ANESTHESIA PROVIDER: Elda Woods CRNA VEHICLE AND EQUIPMENT CLEANER: 1. Tawny Benitez PA-C. 2. Anjelica Flor LPN. ESTIMATED BLOOD LOSS: 200 mL. COMPLICATIONS: None. CONDITION: Stable. IMPLANTS: 1. [place] size 2 press-fit CR femur. 2. [place] size 2 press-fit tibial base plate. 3. [place] size 2 9 mm CS polyethylene. 4. [place] size 28 27 x 8 mm cemented patella. DESCRIPTION OF PROCEDURE: The patient was identified in the preop holding area. Proper site was marked and identified by the surgeon. The patient was taken to the operative theater where after adequate anesthesia, the patient's left lower extremity had a nonsterile tourniquet applied and was then sterilely prepped and draped in the usual sterile fashion. OR time-out was performed. The patient received 2 g IV Ancef. At this time, the left lower extremity was exsanguinated. Tourniquet was insufflated to 250 mmHg. At this time, a standard medial parapatellar incision was made. Medial parapatellar arthrotomy was created. Deep fibers of the MCL were raised and the anterior fat pad was resected. Attention was turned to the patella. The patella measured 19, it was resected to a 13 and was drilled for a 27 x 8 mm concentric patella. At this time, attention was turned to the distal femur. Intramedullary distal femoral hole was drilled and the intramedullary distal femoral cutting guide was placed and the distal femoral resection was carried out with 8 mm resection. At this time, sizing guide was placed. It was found to be a size 2 femur. Epicondylar access holes were drilled using epicondyles as reference as well as [place] line. At this time, the 4-in-1 cutting block was placed. An anterior, posterior, and anterior and posterior chamfer cuts were then completed, found to be adequate. At this time, attention was turned to the tibia. The extramedullary tibial cutting guide was then placed in the old footprint of the ACL. It was set for roughly 0 degrees varus valgus alignment at the center of the ankle and then 3 degrees of slope roughly was set; 9 mm was measured off the unaffected lateral side. At this time, resection was carried out. It was found to be an adequate resection. The medial and lateral meniscus were removed along with any posterior osteophytes. Size 2 base plate was found to have adequate coverage. This was then placed and trial implants were placed. A 9 mm trial spacer was placed. The patient's knee was brought through full range of motion. The patient had full extension and flexion, it was stable throughout the range of motion. Patella was tracking centrally. At this time, the tibia was stamped and drilled in proper rotation for a size 2 tibial press-fit component. At this time, the size 2 press-fit component was impacted into place. The size 2 CR femur was impacted into place and a 9 mm CS insert was impacted into place. At this time, the 27 x 8 mm patella was then cemented into place as there was not a press-fit option. The patient's knee was brought into full extension. Excess cement was removed from around the patella. 1 L dilute Betadine solution was irrigated through the knee along with 3 L pulse lavage irrigation with Ancef and a periarticular injection was then completed. Once this was done, the tourniquet was deflated and all bleeders were cauterized. The topical tranexamic acid and vancomycin powder were then placed. #2 barbed suture was used for closure of the medial parapatellar arthrotomy, 2-0 Vicryl was used subcutaneously, and a running Monocryl along with Prineo was used for the skin. The patient had a sterile soft dressing applied and sent to PACU in stable condition. KRISTAL /[id number] GÉNESIS
== END 2017-09-22 14:45 | disposition home or self-care (01) ==
LOC: JD.SDS 11:38 → JD.OB 11:40 → UNDOADMIN 15:28 → JD.SDS 15:28
PROVIDERS: ATTEND Orthopaedic Surgery
DX: M17.0 Bilateral primary osteoarthritis of knee (principal); I10 Essential (primary) hypertension; F41.9 Anxiety disorder, unspecified; E03.9 Hypothyroidism, unspecified; F42.9 Obsessive-compulsive disorder, unspecified; Z79.899 Other long term (current) drug therapy; Z98.51 Tubal ligation status
CPT/HCPCS: 36415; 73560-26-LT; 73560-LT; 80053; 81025; 85027; 94762; 97110-GP; 97116-GP; 97161-GP; 97165-GO; 97535-GO; A9270-GY; C1713; C1776; J0171; J0690; J0697; J1200; J1885; J2250; J2270; J2274; J2405; J2704; J2795; J3010; J3370; J3490; J7120

== ENCOUNTER 2017-11-23 05:17 | Emergency (ER) | payer BC ==
[2017-11-23 05:29] VITALS: BP 152/102
--- NOTE | 2017-11-23 05:55 | EDM.PDOC ---
ED HPI GENERAL MEDICAL PROBLEM - General Chief Complaint: ENT Problem Stated Complaint: pain in head Time Seen by Provider: 11/23/17 05:32 Source of Information: Reports: Patient History Limitations: Reports: No Limitations - History of Present Illness INITIAL COMMENTS - FREE TEXT/NARRATIVE: 47-year-old female presents to the ED with severe right ear pain. Patient states she awoke from sleep approximately 2 hours ago with severe sharp stabbing pain in her right ear. She has taken a hydrocodone 5/325 milligram tablet for the pain about an hour and a half ago and current pain is down to about 8 out of 10. Patient has hydrocodone tablets because she just had a left total knee replacement. Patient has had a notable problem with her right ear since August 2016 at which time she lost her hearing suddenly. Visualization of her tympanic membrane revealed that there was a abnormality appreciable and she was sent to ear nose and throat surgeon Dr. Be up in [place]. He has subsequently retired. She was seen by Dr. Adrian your nose and throat surgeon in [place] identified a problem as well and wondered to have further examination by way of MRI. He has tried this twice with oral diazepam and Ativan and due to severe claustrophobia was unable to complete the exam. She has never been offered MRI under anesthesia. She's reports that she still has no hearing in this ear and has no loss of balance thus far. She has clear drainage from the ear on a daily basis in large quantities i.e. enough to soak her shoulder in anterior shirt at times. Has not noticed any foul or purulent drainage. 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 She has had a ventilation tube placed in his eardrum greater than 9 or 10 months ago. Onset: Sudden Onset Date: 11/23/17 (Awoke around 0400 hrs. with severe pain in her right ear.) Duration: Hour(s): Location: Reports: Face (Right ear pain. Severe sharp and stabbing) Quality: Reports: Sharp, Stabbing Severity: Severe (Currently rates the pain as 8 out of 10) Improves with: Reports: Medication (Hydrocodone tablet 1 5/3/25 milligrams strength is helped somewhat.) Worsens with: Reports: None Context: Reports: Other (Has been deaf in her right ears that occurred spontaneously in August 2016. A growth was appreciated on examination of the tympanic membrane but for whatever reason lack of follow-up has occurred and no definitive management has ever been carried out on this tumor.). Denies: Activity, Exercise, Lifting, Sick Contact, Trauma Associated Symptoms: Denies: Confusion, Chest Pain, Cough, cough w sputum, Diaphoresis, Fever/Chills, Headaches, Malaise, Nausea/Vomiting, Rash, Seizure, Shortness of Breath, Weakness Treatments STONEWORKING BELT SANDER: Reports: Other (see below) (Took a hydrocodone 5//25 milligram tablet before leaving [facility] this morning.) Right Ear Pain Score (Numeric/FACES): 8 - Related Data Allergies Allergy/AdvReac Type Severity Reaction Status Date / Time No Known Allergies Allergy Verified 09/21/17 13:06 Home Meds: Home Meds ALPRAZolam [Alprazolam] 1 mg PO BID PRN 09/18/17 [History] Levothyroxine [Synthroid] 50 mcg PO DAILY 09/18/17 [History] Nebivolol [Bystolic] 5 mg PO BEDTIME 09/18/17 [History] Zolpidem Tartrate 10 mg PO BEDTIME 09/18/17 [History] Acetaminophen/HYDROcodone [[place] 325-5 MG] 1 - 2 tab PO Q6H PRN 11/23/17 [ History] Ciprofloxacin HCl 10 ml EARRT QID #2 drops 11/23/17 [Rx] oxyCODONE HCl/Acetaminophen [Percocet 5-325 mg Tablet] 1 - 2 each PO Q4H PRN # 20 tablet 11/23/17 [Rx] Past Medical History Cardiovascular History: Reports: Hypertension Respiratory History: Reports: None Gastrointestinal History: Reports: Hiatal Hernia Genitourinary History: Reports: UTI, Recurrent 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: Endometrial Ablation Musculoskeletal History: Reports: None Neurological History: Reports: None Psychiatric History: Reports: Anxiety, OCD Endocrine/Metabolic History: Reports: Hypothyroidism Hematologic History: Reports: None Immunologic History: Reports: None Oncologic (Cancer) History: Reports: None Dermatologic History: Reports: None - Past Surgical History Head Surgeries/Procedures: Reports: None HEENT Surgical History: Reports: Myringotomy w Tube(s) Cardiovascular Surgical History: Reports: None Respiratory Surgical History: Reports: None GI Surgical History: Reports: Cholecystectomy Female Surgical History: Reports: Section, Tubal Ligation Endocrine Surgical History: Reports: None Neurological Surgical History: Reports: None Musculoskeletal Surgical History: Reports: Arthroscopic Knee, Knee Replacement Oncologic Surgical History: Reports: None Dermatological Surgical History: Reports: None Social & Family History - Family History Family Medical History: Noncontributory Cardiac: Reports: Afib, OR - Tobacco Use Smoking Status *Q: Never Smoker Second Hand Smoke Exposure: No - Caffeine Use Caffeine Use: Reports: Tea - Recreational Drug Use Recreational Drug Use: No - Living Situation & Occupation Living situation: Reports: Occupation: Unemployed ED ROS ENT - Review of Systems Review Of Systems: See Below Constitutional: Reports: Fatigue (As having a left knee replaced.). Denies: Fever, Chills, Malaise, Weakness, Weight Loss HEENT: Reports: Ear Discharge (Severe sharp stabbing right ear pain that awoke from sleep this morning. See history of present illness on a clear fluid discharge from the urine large quantities on a daily basis), Ear Pain, Hearing Loss. Denies: Glasses, Nosebleed, Nose Pain, Rhinitis, Sinus Problem, Throat Pain, Throat Swelling (Has complete hearing loss in the right ear since August 2016) Respiratory: Reports: No Symptoms Cardiovascular: Reports: No Symptoms Endocrine: Reports: No Symptoms GI/Abdominal: Reports: No Symptoms Musculoskeletal: Reports: Joint Pain (Just had her left knee totally replaced.) Skin: Reports: No Symptoms Neurological: Reports: No Symptoms Psychiatric: Reports: No Symptoms Hematologic/Lymphatic: Reports: No Symptoms Immunologic: Reports: No Symptoms ED EXAM, ENT - Physical Exam Exam: See Below Exam Limited By: No Limitations General Appearance: Alert, WD/WN, Moderate Distress (Right anxious.) Eye Exam: Bilateral Eye: Normal Inspection Ears: Canal Material (Clinically 1 I look in her right ear all I can see is a large cholesteatoma that is taking up all of the ear canal and obscures the tympanic membrane totally. If there was ventilation tube in the canal I cannot visualize it. There is no blood or active bleeding in the ear canal.). No: Hearing Grossly Normal Mouth/Throat: Normal Inspection, Normal Gums, Normal Lips, Normal Oropharynx Head: Atraumatic, Normocephalic Neck: Normal Inspection, Supple, Non-Tender, Full Range of Motion. No: Lymphadenopathy (L), Lymphadenopathy (R) Respiratory/Chest: No Respiratory Distress, Lungs Clear, Normal Breath Sounds, No Accessory Muscle Use Cardiovascular: Normal Peripheral Pulses, Regular Rate, Rhythm, No Edema, No Murmur Course - Vital Signs Last Recorded V/S: Last Vital Signs Temp 36.6 C 11/23/17 05:27 Pulse 89 11/23/17 05:27 Resp 20 11/23/17 05:27 BP 152/102 H 11/23/17 05:27 Pulse Ox 100 11/23/17 05:27 - Orders/Labs/Meds Orders: Active Orders 24 hr Category Date Time Status Sodium Chloride 0.9% [Saline Flush] Med 11/23/17 06:25 Active 10 ml FLUSH ONETIME PRN Medication Orders Sodium Chloride (Saline Flush) 10 ml FLUSH ONETIME PRN PRN Reason: IV FLUSH Last Admin: 11/23/17 06:44 Dose: 10 ml Meds: Medications Generic Name Dose Route Start Last Admin Trade Name Freq PRN Reason Stop Dose Admin Sodium Chloride 10 ml 11/23/17 06:25 11/23/17 06:44 Saline Flush FLUSH 10 ml ONETIME PRN Administration IV FLUSH Discontinued Medications Generic Name Dose Route Start Last Admin Trade Name Freq PRN Reason Stop Dose Admin Hydromorphone HCl 0.5 mg 11/23/17 07:17 11/23/17 07:31 Dilaudid IVPUSH 11/23/17 07:18 0.5 mg ONETIME ONE Administration Iopamidol 50 ml 11/23/17 06:25 11/23/17 06:44 Isovue-300 (61%) IVPUSH 11/23/17 06:26 50 ml ONETIME ONE Administration Ondansetron HCl 4 mg 11/23/17 07:18 11/23/17 07:27 Zofran IVPUSH 11/23/17 07:19 4 mg ONETIME ONE Administration - Radiology Interpretation Free Text/Narrative:: 47-year-old female presents to the ED with acute severe pain in her right ear that awoke her from sleep about 2 hours ago. Lives in [facility] and therefore traveled to [place] for care. Current pain is about 8 out of 10. When I look in her ear out can see is evidence of a large cholesteatoma that is obscuring the tympanic membrane pearly white in color and appears to be losing some clear fluid. Blood in the ear canal. Therefore there is no explanation as to why the pain became so severe this morning I would've been suspect bleeding into tissue. Extent of this tumor is unclear since the patient has never had an MRI due to severe claustrophobia on 2 attempts to have this test carried out. Invasion into bone and other tissues as well as spontaneous bleeding into tumor are suspect. Plan will proceed with CT of the head with and without IV contrast. - Re-Assessments/Exams Free Text/Narrative Re-Assessment/Exam: 11/23/17 07:20: CT of the head was done with and without contrast. There was no acute bleeding within the brain tissue without contrast. It does reveal extensive opacification of the mastoid and the middle ear cavity. Cannot rule out mastoiditis or middle ear infection. It also identifies the osteophytic lesion outside of the tympanic membrane with thickening of the TM as well as soft tissue in the middle ear cavity. This is compatible with cholesteatoma as is visible. I was able to speak with Dr. Sanchez your nose and throat surgeon in [place] although he is not in the office today he will see her in consultation likely later this week. The patient lives in [facility] and is willing to make the drive whenever possible. Dr. Sanchez is asked for me to arrange Dr. Bonilla our radiologist to see her in consultation with a hearing assessment in this is been booked for tomorrow morning at 10:00 as he is also out of the office today. Patient will be placed on ofloxacin drops 2 drops to the right ear 3 times daily until follow-up with Dr. Sanchez to see if it reduces her serous drainage which is of large quantity on a daily basis. I do not smell any odor or see any greenish discharge to suggest an infective process of the cholesteatoma. It is recognized that the cholesteatoma is in an advanced stage and appears to be invading bone in the middle ear cavity. She's been deaf for over a year. She also is mildly ataxic at times suggesting mild vertigo. She never has any spinning or rotational component to her symptoms however she just ends up taking an extra step or 2. She is also had symptoms involving the seventh cranial nerve particularly around her right eye the orbicularis oculi muscle seems to develop transient intermittent weakness. She has never developed right facial droop. It is suspect that this patient will require treatment and a higher skilled facility such as the [facility] with combination of neurosurgery an ear nose and throat surgery consultation and management. Dr. Sanchez states he will help facilitate this if so indicated. The CT scans have been sent to [facility] through the PACS unit. Copies of the report will be sent to Dr. Sanchez's office and Dr. Medina's office as well. 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 Instructions: Hearing Loss Referrals: PCP,Not In Area [Primary Care Provider] - Forms: ED Department Discharge Additional Instructions: Evaluation in the emergency room today in regards to sudden onset of severe pain in her right ear that awoke her from sleep. I do not have a clear explanation as to what transpired to cause the sudden onset of severe pain. However examination of your ear reveals a large cholesteatoma itch is a benign growth involving almost the entire middle ear cavity and mastoid process and protruding from the eardrum occluding your ear canal. This is where this persistent clear fluid drainage is coming from. CT scan reveals that the benign tumor is extensive but is not invading brain tissue. It is going to require extensive work to remove from the middle ear cavity both likely by a neurosurgeon and ear nose and throat surgeon together. I spoken with Dr. Sanchez ear nose and throat surgeon in [place] and he would be glad to see you in consultation unfortunately he is out of the office today. I will therefore give you his phone number and have you call and make an appointment hopefully for later this week. Number is [phone]. The other number I have for him is [phone]. Dr. Sanchez is requested that you be started on eardrops and we will use all ofloxacin drops 2 drops to the right ear 3 times daily until you see him in follow-up. He once to see if it'll reduces the amount of drainage you 're having from your right ear canal. I've also prescribe Percocet tabs 5/3/25 milligrams up to be taken one or 2 tabs every 4-6 hours as needed for severe right ear pain. Dr. Sanchez is also asked that you see our dye reel operator Dr. Medina for audiology consultation and workup he states this will speed up the process in terms of getting her to the [facility] for definitive surgical management of your rather rare problem. Unfortunately Dr. Medina is not in the clinic either today but will be available the rest of the week. Believe an appointment has been arranged for tomorrow morning. I will send notes to both Dr. Sanchez's office and to Dr. Medina's office. - My Orders Last 24 Hours: My Active Orders 11/23/17 06:25 Sodium Chloride 0.9% [Saline Flush] 10 ml FLUSH ONETIME PRN - Assessment/Plan Last 24 Hours: My Active Orders 11/23/17 06:25 Sodium Chloride 0.9% [Saline Flush] 10 ml FLUSH ONETIME PRN
[2017-11-23] MEDS ORDERED: Iopamidol 612 MG/ML 50 ML SDV IVPUSH ONE (06:25)
[2017-11-23] MEDS ORDERED: Sodium Chloride 0.9% 10 ML Syringe FLUSH PRN (06:25)
[2017-11-23] MEDS ORDERED: HYDROmorphone 0.5 MG/0.5 ML SYRINGE IVPUSH ONE (07:17)
[2017-11-23] MEDS ORDERED: Ondansetron 4 MG/2 ML SDV IVPUSH ONE (07:18)
--- NOTE | 2017-11-23 08:07 | CT ---
Head CT (without and with intravenous contrast) Technique: Multiple axial sections were obtained from above the dome of the diaphragm inferiorly through the pubic symphysis. Study obtained without and with intravenous contrast. Comparison: No prior intracranial imaging. Findings: Sulci are slightly prominent over both frontal lobes. Ventricles along with basal cisterns and sulci over the convexities are otherwise within normal limits. No evidence of intracranial hemorrhage. No midline shift or mass effect is seen. No abnormal enhancement is identified within the brain parenchyma. No midline shift or mass effect is seen. Sella turcica is mildly enlarged compatible with so-called empty sella which is a normal variant. Bone window settings were reviewed which show diffuse opacification within the right mastoid sinus as well as increased density within the right middle ear cavity. Bone disruption is noted anteriorly within the right mastoid sinus into the middle ear cavity. Minimal mucosal thickening is noted within the sphenoid and maxillary sinus. Impression: 1. Diffuse opacification right mastoid sinus and right middle ear cavity compatible with combination of mastoiditis, otitis media and cholesteatoma. Minimal mucosal thickening within the paranasal sinuses. 2. Mild asymmetric frontal atrophy is seen. 3. No additional abnormality is identified on head CT study performed without and with intravenous contrast. Diagnostic code #5 Agree with preliminary report issued by [facility] ([facility] preliminary report dictated on 11/23/17, 8:41 AM Central Time)
--- NOTE | 2017-11-23 08:24 | CT ---
CT temporal bones Technique: Multiple axial sections through the temporal bones were obtained. Findings: Diffuse opacification of the right mastoid sinus is seen. There is disruption of a portion of the anterior bone into the middle cranial fossa from the mastoid sinus. Soft tissue density seen within the right middle ear. Slight soft tissue density noted within the middle ear attic on the left side compatible with small cholesteatoma.. Semicircular canals and cochlea are unremarkable. Internal auditory canals appear within normal limits. Diffuse soft tissue density is noted around the ossicular mass on the right side. Impression: 1. Diffuse opacification of the right mastoid sinus with bone disruption anteriorly from the mastoid sinus into the middle cranial fossa. Findings are compatible with cholesteatoma and superimposed mastoiditis. 2. Soft tissue density within the middle ear cavity compatible with cholesteatoma and superimposed otitis media. 3. Minimal soft tissue density compatible with cholesteatoma within the attic of the left middle ear cavity. 4. No left-sided abnormalities are seen. Diagnostic code #5 Agree with preliminary report issued by [facility] ([facility] preliminary report dictated on 11/23/17, 9:04 AM Central Time)
== END 2017-11-23 08:35 | disposition home or self-care (01) ==
LOC: JD.ED 05:17
DX: H71.01 Cholesteatoma of attic, right ear (principal); I10 Essential (primary) hypertension; E03.9 Hypothyroidism, unspecified; Z87.440 Personal history of urinary (tract) infections; Z79.899 Other long term (current) drug therapy
CPT/HCPCS: 70470; 70482; 96374; 96375; 99284; J1170; J2405; J7050; Q9967

== ENCOUNTER 2018-10-04 07:16 | Inpatient (IN) | payer BC ==
[~2018-10-04 07:16] MED LIST changes: +Acetaminophen 325 MG Tab PO SCH; -Bisacodyl 5 MG Tab PO PRN; -Ketorolac 30 MG/ML SDV ONE; -Lactated Ringers 1,000 ML IV SCH; -Lactated Ringers 1,000 ML ONE; -Lidocaine 1%/Sod Bicarbonate in NS 8.4% 1 ML Syringe IV PRN; -Magnesium Hydroxide 400 MG/5 ML Susp 30 ML Cup PO PRN; -Midazolam 1 MG/ML 2 ML SDV ONE; -Morphine 2 MG/ML Syringe IVPUSH PRN; -Morphine 8 MG, EPINEPHrine 0.3 MG, Cefuroxime 750 MG, Ketorolac 30 MG, Sodium Chloride ... ONE; -Morphine PF 1 MG/ML Amp ONE; -Naloxone 0.4 MG/ML SDV IVPUSH PRN; -Ondansetron 4 MG/2 ML SDV IVPUSH PRN; +Pregabalin 25 MG Cap PO SCH; -Propofol 200 MG/20 ML SDV ONE; -Sennosides 8.6 MG Tab PO PRN; -Sodium Chloride 0.9% 10 ML Syringe FLUSH PRN; -ceFAZolin 1 GM Vial ONE; -diphenhydrAMINE 50 MG/ML SDV IVPUSH PRN; -fentaNYL 100 MCG/2 ML SDV ONE; +oxyCODONE ER 10 MG TAB.ER PO SCH
[2018-10-04] MEDS ORDERED: Lidocaine 1%/Sod Bicarbonate in NS 8.4% 1 ML Syringe IDERM PRN (07:30)
[2018-10-04] MEDS ORDERED: Lactated Ringers 1,000 ML IV SCH (07:30)
[2018-10-04] MEDS ORDERED: Sodium Chloride 0.9% 10 ML Syringe FLUSH PRN (07:30)
--- NOTE | 2018-10-04 07:54 | PCM.PREANE ---
Preanesthetic Assessment - Anesthesia/Transfusion/Family Hx Anesthesia History: Prior Anesthesia Without Reaction Family History of Anesthesia Reaction: No Transfusion History: Prior Transfusion Without Reaction Intubation History: Unknown - Review of Systems General: No Symptoms Pulmonary: No Symptoms Cardiovascular: Dyspnea on Exertion Gastrointestinal: No Symptoms Neurological: No Symptoms Other: Reports: Thyroid Problems (hypothyroid) - Physical Assessment NPO Status Date: 10/03/18 NPO Status Time: 00:00 Pulse: 78 O2 Sat by Pulse Oximetry: 100 Respiratory Rate: 16 Blood Pressure: 131/73 Temperature: 37.0 C Height: 1.52 m Weight: 111.538 kg ASA Class: 2 Mental Status: Alert & Oriented x3 Airway Class: Mallampati = 2 Dentition: Reports: [place](s) Thyro-Mental Finger Breadths: 2 Mouth Opening Finger Breadths: 2 ROM/Head Extension: Full Lungs: Clear to Auscultation, Normal Respiratory Effort Cardiovascular: Regular Rate, Regular Rhythm - Lab Values: Laboratory Last Values Urine HCG, Qual Negative (NEGATIVE) 10/04/18 07:23 MRSA (PCR) Negative 09/24/18 09:25 - Imaging/EKG Impressions: on chart SR - Allergies Allergies/Adverse Reactions: Allergies Allergy/AdvReac Type Severity Reaction Status Date / Time No Known Allergies Allergy Verified 10/01/18 13:30 - Anesthesia Plan Pre-Op Medication Ordered: Beta Paul Beta Paul: Bisoprolol Med Last Dose Date: 10/03/18 Med Last Dose Time: 19:00 - Acknowledgements Anesthesia Type Planned: Spinal Pt an Appropriate Candidate for the Planned Anesthesia: Yes Alternatives and Risks of Anesthesia Discussed w Pt/Guardian: Yes Pt/Guardian Understands and Agrees with Anesthesia Plan: Yes PreAnesthesia Questionnaire Cardiovascular History: Reports: Hypertension Respiratory History: Reports: None Gastrointestinal History: Reports: Hiatal Hernia Genitourinary History: Reports: UTI, Recurrent, Other (See Below) Other Genitourinary History: ovarian cyst [employer] MAJOR History: Reports: Endometrial Ablation, Endometriosis Musculoskeletal History: Reports: None Neurological History: Reports: None, Other (See Below) Other Neuro History: temporal encephalocele, brain surgery x 2, craniotomy Psychiatric History: Reports: Anxiety, OCD Endocrine/Metabolic History: Reports: Hypothyroidism Hematologic History: Reports: None Immunologic History: Reports: None Oncologic (Cancer) History: Reports: None Dermatologic History: Reports: None - Past Surgical History Head Surgeries/Procedures: Reports: None HEENT Surgical History: Reports: Myringotomy w Tube(s), Other (See Below) Other HEENT Surgeries/Procedures: mastoidectomy Cardiovascular Surgical History: Reports: None Respiratory Surgical History: Reports: None GI Surgical History: Reports: Cholecystectomy Female Surgical History: Reports: Section, Tubal Ligation Male Surgical History: Reports: None Endocrine Surgical History: Reports: None Neurological Surgical History: Reports: None Musculoskeletal Surgical History: Reports: Arthroscopic Knee, Knee Replacement Oncologic Surgical History: Reports: None Dermatological Surgical History: Reports: None - SUBSTANCE USE Smoking Status *Q: Never Smoker Tobacco Use Within Last Twelve Months: No Second Hand Smoke Exposure: No Days Per Week of Alcohol Use: 0 Number of Drinks Per Day: 0 Total Drinks Per Week: 0 Recreational Drug Use History: No - HOME MEDS Home Medications: Home Meds Levothyroxine [Synthroid] 50 mcg PO DAILY 09/18/17 [History] Nebivolol [Bystolic] 5 mg PO BEDTIME 09/18/17 [History] Zolpidem Tartrate 10 mg PO BEDTIME 09/18/17 [History] Cholecalciferol (Vitamin D3) [Vitamin D3] 5,000 unit PO DAILY 10/01/18 [History] - CURRENT (IN HOUSE) MEDS Current Meds: Current Medications Acetaminophen (Tylenol) 975 mg PO ONETIME WILFRID Stop: 10/04/18 12:00 Aspirin (Ecotrin) 325 mg PO BID WILFRID Bisacodyl (Dulcolax) 5 mg PO DAILY PRN PRN Reason: Constipation Morphine Sulfate 8 mg/Epinephrine HCl 0.3 mg/Cefuroxime Sodium 750 mg/Ketorolac Tromethamine 30 mg/Sodium Chloride 27.9 ml 0 mg .XX ONETIME ONE Stop: 10/04/18 09:31 Cyclobenzaprine HCl (Flexeril) 10 mg PO TID PRN PRN Reason: Spasms Docusate Sodium (Colace) 100 mg PO BID WILFRID Famotidine (Pepcid) 20 mg PO Q12H WILFRID Cefazolin Sodium/Dextrose 2 gm (/ Premix) 50 mls @ 100 mls/hr IV Q8H WILFRID Stop: 10/04/18 23:14 Ketorolac Tromethamine (Toradol) 15 mg IVPUSH Q6H PRN PRN Reason: Pain Magnesium Hydroxide (Milk Of Magnesia) 30 ml PO BID PRN PRN Reason: Constipation Morphine Sulfate (Morphine) 2 mg IVPUSH Q2H PRN PRN Reason: Breakthrough Pain Naloxone HCl (Narcan) 0.1 mg IVPUSH Q5M PRN PRN Reason: Oversedation Ondansetron HCl (Zofran) 4 mg IVPUSH Q6H PRN PRN Reason: Nausea/Vomiting Oxycodone HCl (Oxycontin) 10 mg PO ONETIME WILFRID Stop: 10/04/18 12:00 Oxycodone/Acetaminophen (Percocet 325-5 Mg) 1 - 2 tab PO Q4H PRN PRN Reason: Pain Pregabalin (Lyrica) 50 mg PO ONETIME WILFRID Stop: 10/04/18 12:00 Senna (Senna) 8.6 mg PO BID PRN PRN Reason: Constipation
[2018-10-04] MEDS ORDERED: Ondansetron 4 MG/2 ML SDV ONE (08:48)
[2018-10-04] MEDS ORDERED: Propofol 200 MG/20 ML SDV ONE ×4 (08:49→10:40)
[2018-10-04] MEDS ORDERED: Midazolam 1 MG/ML 2 ML SDV ONE (08:49)
[2018-10-04] MEDS ORDERED: fentaNYL 100 MCG/2 ML SDV ONE (08:49)
[2018-10-04] MEDS ORDERED: ceFAZolin 1 GM Vial ONE (08:50)
[2018-10-04] MEDS ORDERED: Lidocaine 1% 4 ML ONE (08:56)
[2018-10-04] MEDS ORDERED: Lactated Ringers 1,000 ML ONE (08:56)
[2018-10-04] MEDS: Bupivacaine 0.25% 30 ML SDV ONE ×2 (10:05→10:39)
[2018-10-04] MEDS: ceFAZolin 1 GM Vial ONE ×2 (10:06→10:35)
[2018-10-04] MEDS: Iodine/Sodium Iodide 2% Tincture 30 ML Bottle ONE ×2 (10:07→10:32)
[2018-10-04] MEDS: Morphine 8 MG, EPINEPHrine 0.3 MG, Cefuroxime 750 MG, Ketorolac 30 MG, Sodium Chloride ... ONE ×10 (10:07→10:42)
[2018-10-04] MEDS: Vancomycin 1 GM SDV ONE ×2 (10:08→10:43)
[2018-10-04] MEDS ORDERED: Naloxone 0.4 MG/ML SDV IVPUSH PRN (11:00)
[2018-10-04] MEDS ORDERED: Ondansetron 4 MG/2 ML SDV IVPUSH PRN (11:00)
[2018-10-04] MEDS ORDERED: Morphine 2 MG/ML Syringe IVPUSH PRN (11:00)
[2018-10-04] MEDS ORDERED: Bisacodyl 5 MG Tab PO PRN (11:00)
[2018-10-04] MEDS ORDERED: Magnesium Hydroxide 400 MG/5 ML Susp 30 ML Cup PO PRN (11:00)
[2018-10-04] MEDS ORDERED: Sennosides 8.6 MG Tab PO PRN (11:00)
[2018-10-04] MEDS ORDERED: Ketorolac 15 MG/ML SDV IVPUSH PRN (11:00)
[2018-10-04] MEDS ORDERED: Ketorolac 30 MG/ML SDV IVPUSH PRN (11:20)
[2018-10-04] MEDS ORDERED: fentaNYL 100 MCG/2 ML SDV IVPUSH PRN (11:20)
[2018-10-04] MEDS ORDERED: Ropivacaine 0.5% 5 MG/ML 30 ML SDV ONE (11:24)
[2018-10-04] MEDS ORDERED: EPINEPHrine 1 MG/ML SDV ONE (11:24)
--- NOTE | 2018-10-04 11:43 | CR ---
Right knee: AP and lateral views of the right knee were obtained. Comparison: No prior knee exam. Knee prosthesis is seen. Components are aligned. Underlying bony structures are intact. Soft tissue air is seen. Impression: 1. Satisfactory postoperative radiographic appearance of recently placed right knee prosthesis. Diagnostic code #2
--- NOTE | 2018-10-04 12:09 | PCM.SN ---
- Free Text/Narrative Note: Right selective femoral nerve block at the adductor canal for post-procedure pain control Time Out: 1130 Start: 1130 End: 1157 Chart reviewed. Consent signed. Questions answered. Appropriate monitors applied. Time out performed. Right mid-shaft femur evaluated with ultrasound. Scanning medially femur, I was able to identify the femoral artery in the adductor canal. The saphenous nerve was lateral to the artery. The skin was prepped lateral to the ultrasound probe with chlorahexadine. The 21ga 4 insulated block needle was inserted under direct ultrasound guidance into the adductor canal. 20mL of 0.5% ropivacaine with 1:200,000 epinephrine was injected cirmcumferentially about the nerve with intermittent negative aspiration every 5mL. Patient tolerated the procedure well. See pictures on progress note and vital signs on nurses notes. Block completed postoperatively. Amador Freeman CRNA
--- NOTE | 2018-10-04 12:10 | PCM.CONS ---
H&P History of Present Illness - General Date of Service: 10/04/18 Admit Problem/Dx: Admission Diagnosis/Problem Admission Diagnosis/Problem Osteoarthritis of knee Source of Information: Patient, Old Records, Provider, RN, RN Notes Reviewed History Limitations: Reports: No Limitations - History of Present Illness Initial Comments - Free Text/Narative: Candi Feldman is a 47 yo female patient of Dr. Wood who is post-operative day 0 of right TKA. Hospital medicine was consulted for post-operative medical care. At this time she is resting comfortably in bed. Pain is controlled. She denies any chest pain, shortness of breath, palpitations, nausea, or vomiting. She carries a history of: Hypertension, hiatal hernia, recurrent UTI, ovarian cyst, endometriosis with endometrial ablation, temporal encephalocele, brain surgery 2 with craniotomy, anxiety, OCD, hypothyroidism. She was never a smoker. She is a full code. Her primary care provider is Chrissie Madrid NP. Right Knee Pain Score (Numeric/FACES): 4 - Related Data Allergies/Adverse Reactions: Allergies Allergy/AdvReac Type Severity Reaction Status Date / Time No Known Allergies Allergy Verified 10/04/18 08:06 Home Medications: Home Meds Levothyroxine [Synthroid] 50 mcg PO DAILY 09/18/17 [History] Nebivolol [Bystolic] 5 mg PO BEDTIME 09/18/17 [History] Zolpidem Tartrate 5 mg PO BEDTIME 09/18/17 [History] Cholecalciferol (Vitamin D3) [Vitamin D3] 5,000 unit PO DAILY 10/01/18 [History] Past Medical History Cardiovascular History: Reports: Hypertension Respiratory History: Reports: None Gastrointestinal History: Reports: Hiatal Hernia Genitourinary History: Reports: UTI, Recurrent, Other (See Below) Other Genitourinary History: ovarian cyst [employer] MANAGER History: Reports: Endometrial Ablation, Endometriosis Musculoskeletal History: Reports: None Neurological History: Reports: None, Other (See Below) Other Neuro History: temporal encephalocele, brain surgery x 2, craniotomy Psychiatric History: Reports: Anxiety, OCD Endocrine/Metabolic History: Reports: Hypothyroidism Hematologic History: Reports: None Immunologic History: Reports: None Oncologic (Cancer) History: Reports: None Dermatologic History: Reports: None - Past Surgical History Head Surgeries/Procedures: Reports: None HEENT Surgical History: Reports: Myringotomy w Tube(s), Other (See Below) Other HEENT Surgeries/Procedures: mastoidectomy Cardiovascular Surgical History: Reports: None Respiratory Surgical History: Reports: None GI Surgical History: Reports: Cholecystectomy Female Surgical History: Reports: Section, Tubal Ligation Male Surgical History: Reports: None Endocrine Surgical History: Reports: None Neurological Surgical History: Reports: None Musculoskeletal Surgical History: Reports: Arthroscopic Knee, Knee Replacement Oncologic Surgical History: Reports: None Dermatological Surgical History: Reports: None Social & Family History - Family History Family Medical History: Noncontributory Cardiac: Reports: [place], [place] - Tobacco Use Smoking Status *Q: Never Smoker Second Hand Smoke Exposure: No - Caffeine Use Caffeine Use: Reports: Soda - Alcohol Use Days Per Week of Alcohol Use: 0 Number of Drinks Per Day: 0 Total Drinks Per Week: 0 - Recreational Drug Use Recreational Drug Use: No Drug Use in Last 12 Months: No - Living Situation & Occupation Living situation: Reports: Occupation: Unemployed H&P Review of Systems - Review of Systems: Review Of Systems: See Below General: Reports: No Symptoms. Denies: Fever, Chills HEENT: Reports: No Symptoms. Denies: Headaches, Sore Throat Pulmonary: Reports: No Symptoms. Denies: Shortness of Breath, Wheezing, Pleuritic Chest Pain, Cough, Sputum Cardiovascular: Reports: No Symptoms. Denies: Chest Pain, Palpitations, Dyspnea on Exertion, Edema Gastrointestinal: Reports: Other (Mild "Heartburn" right now ). Denies: Abdominal Pain, Constipation, Diarrhea, Nausea, Vomiting Genitourinary: Reports: No Symptoms. Denies: Pain Musculoskeletal: Reports: Leg Pain Skin: Reports: No Symptoms Psychiatric: Reports: No Symptoms. Denies: Confusion Neurological: Reports: No Symptoms Hematologic/Lymphatic: Reports: No Symptoms Immunologic: Reports: No Symptoms Exam - Exam Exam: See Below - Vital Signs Vital Signs: Last Vital Signs Temp 97.2 F 10/04/18 11:20 Pulse 93 10/04/18 11:20 Resp 18 10/04/18 11:20 BP 131/63 10/04/18 11:20 Pulse Ox 100 10/04/18 11:20 Weight: 245 lb 14.4 oz - Exam Quality Assessment: DVT Prophylaxis General: Alert, Oriented, Cooperative. No: Mild Distress HEENT: Conjunctiva Clear, EACs Clear, EOMI, Hearing Intact, Mucosa Moist & [place] , Nares Patent, Posterior Pharynx Clear, PERRLA Neck: Supple, Trachea Midline Lungs: Clear to Auscultation, Normal Respiratory Effort Cardiovascular: Regular Rate, Regular Rhythm GI/Abdominal Exam: Normal Bowel Sounds, Soft, Non-Tender, No Distention, No Abnormal Bruit (Female) Exam: Deferred Rectal (Female) Exam: Deferred Back Exam: Normal Inspection, Full Range of Motion Extremities: No Pedal Edema, Normal Capillary Refill, Leg Pain, Limited Range of Motion, Other (Bandage in place on right leg. Bandage is dry and intact. Cooling pack in place. ) Peripheral Pulses: 2+: Radial (L), Radial (R), Dorsalis Pedis (L), Dorsalis Pedis (R) Skin: Warm, Dry, Intact Neurological: Cranial Nerves Intact (grossly ) Neuro Extensive - Mental Status: Alert, Oriented x3, Normal Mood/Affect, Normal Cognition - Patient Data Lab Results Last 24 hrs: Laboratory Results - last 24 hr 10/04/18 Range/Units 07:23 Urine HCG, Qual Negative (NEGATIVE) Consult PN Assessment/Plan POD#: 0 Procedures: Procedures ASSAY OF TROPONIN QUANT (03/26/16) ASSAY THYROID STIM HORMONE (03/26/16) COMPLETE CBC AUTOMATED (09/21/17) COMPLETE CBC W/AUTO DIFF WBC (03/26/16) COMPREHEN METABOLIC PANEL (09/21/17) CT HEAD/BRAIN W/O & W/DYE (11/23/17) CT ORBIT/EAR/FOSSA W/O&W/DYE (11/23/17) ELECTROCARDIOGRAM TRACING (03/26/16) EMERGENCY DEPT VISIT (11/23/17) EMERGENCY DEPT VISIT (03/26/16) EXTREMITY STUDY (09/29/17) GAIT TRAINING THERAPY (09/21/17) HYDRATE IV INFUSION ADD-ON (06/24/16) MEASURE BLOOD OXYGEN LEVEL (09/21/17) MR-STAPH DNA AMP PROBE (08/28/17) N BLOCK INJ FEM SINGLE (09/21/17) OT EVAL LOW COMPLEX 30 MIN (09/21/17) PT EVAL LOW COMPLEX 20 MIN (09/21/17) ROUTINE VENIPUNCTURE (09/21/17) SELF CARE MNGMENT TRAINING (09/21/17) THER/PROPH/DIAG INJ IV PUSH (11/23/17) THER/PROPH/DIAG IV INF INIT (06/24/16) THERAPEUTIC EXERCISES (09/21/17) TOTAL KNEE ARTHROPLASTY (09/21/17) TX/PRO/DX INJ NEW DRUG ADDON (11/23/17) URINALYSIS AUTO W/SCOPE (06/24/16) URINE TEST (09/21/17) X-RAY EXAM OF KNEE 1 OR 2 (09/21/17) (1) S/P total knee arthroplasty SNOMED Code(s): 4685101414722, 821069089, 9950849195566 Code(s): Z96.659 - PRESENCE OF UNSPECIFIED ARTIFICIAL KNEE JOINT Priority: High Current Visit: Yes Qualifiers: Laterality: right Qualified Code(s): Z96.651 - Presence of right artificial knee joint (2) Osteoarthritis SNOMED Code(s): 228817443 Code(s): M19.90 - UNSPECIFIED OSTEOARTHRITIS, UNSPECIFIED SITE Priority: High Current Visit: Yes Qualifiers: Osteoarthritis location: knee Osteoarthritis type: primary Laterality: right Qualified Code(s): M17.11 - Unilateral primary osteoarthritis, right knee (3) Temporal encephalocele SNOMED Code(s): 397746790 Code(s): Q01.8 - ENCEPHALOCELE OF OTHER SITES Priority: Low Current Visit : No (4) Anxiety SNOMED Code(s): 00098670 Code(s): F41.9 - ANXIETY DISORDER, UNSPECIFIED Priority: Low Current Visit: No (5) HTN (hypertension) SNOMED Code(s): 01633994 Code(s): I10 - ESSENTIAL (PRIMARY) HYPERTENSION Priority: Low Current Visit: No Qualifiers: Hypertension type: unspecified Qualified Code(s): I10 - Essential (primary ) hypertension (6) Hypothyroidism SNOMED Code(s): 21958674 Code(s): E03.9 - HYPOTHYROIDISM, UNSPECIFIED Priority: Low Current Visit : No Qualifiers: Hypothyroidism type: unspecified Qualified Code(s): E03.9 - Hypothyroidism , unspecified (7) OCD (obsessive compulsive disorder) SNOMED Code(s): 166885652 Code(s): F42.9 - OBSESSIVE-COMPULSIVE DISORDER, UNSPECIFIED Priority: Low Current Visit: No Qualifiers: Obsessive-compulsive disorder type: unspecified Qualified Code(s): F42.9 - Obsessive-compulsive disorder, unspecified Problem List Initiated/Reviewed/Updated: Yes Plan: I/P: Acute: S/P right total knee arthroplasty - post-operative day 0 -DVT prophylaxis and pain management per primary care team -PT/OT -IS/RT -Monitor oxygen saturation -Titrate oxygen as needed -Vital signs stable -Monitor labs -Pre-operative Hgb was 12.8 -Pre-operative GFR was >90 Osteoarthritis of right knee -Pain management per primary care team Chronic: Hypertension hiatal hernia recurrent UTI ovarian cyst endometriosis with endometrial ablation temporal encephalocele brain surgery 2 with craniotomy anxiety OCD hypothyroidism Plan: CM for discharge planning GI prophylaxis Home medications as indicated Other orders as listed above Routine AM labs She is a full code. Her PCP is Chrissie Madrid NP Thank you for allowing us to participate in the care of this patient!! Requesting Provider: Dr. Wood Date Consult Requested: 10/04/18 Reason for Consult: Post-operative medical management Patient History Reviewed: Yes Admission H&P Reviewed: Yes Time Spent (in minutes): 40
--- NOTE | 2018-10-04 12:11 | PCM.POSTAN ---
POST ANESTHESIA ASSESSMENT - MENTAL STATUS Mental Status: Alert, Oriented - VITAL SIGNS Pulse Rate: 118 SaO2: 100 Resp Rate: 22 Blood Pressure: 113/62 Temperature: 97.1 C - RESPIRATORY Respiratory Status: Respiratory Rate WNL, Airway Patent, O2 Saturation Stable - CARDIOVASCULAR CV Status: Pulse Rate WNL, Blood Pressure Stable - GASTROINTESTINAL GI Status: No Symptoms - PAIN Pain Score: 0 - POST OP HYDRATION Hydration Status: Adequate & Stable - OBSERVATIONS Free Text/Narrative:: no anesthesia complications noted
--- NOTE | 2018-10-04 12:57 | PCM.OPNOTE ---
- General Post-Op/Procedure Note Date of Surgery/Procedure: 10/04/18 Operative Procedure(s): right total knee arthroplasty Pre Op Diagnosis: right knee osteoarthrosis Post-Op Diagnosis: Same Anesthesia Technique: Local, MAC, Spinal Primary Surgeon: Sean Wood Anesthesia Provider: Amador Freeman Switching Clerk: Tawny Benitez Switching Clerk: Anjelica Flor EBDolores in mLs: 10 Complications: None Condition: Good Free Text/Narrative:: Intake & Output 10/03/18 10/04/18 10/04/18 22:59 06:59 14:59 Intake Total 150 Balance 150 size 2/2 11mm 27x8 cemented patella
--- NOTE | 2018-10-04 13:21 | OR ---
DATE OF OPERATION: 10/04/2018 SURGEON: Sean Wood MD OPERATION PERFORMED: Right total knee arthroplasty. PREOPERATIVE DIAGNOSIS: Right knee osteoarthrosis. POSTOPERATIVE DIAGNOSIS: Right knee osteoarthrosis. ANESTHESIA: Local MAC with spinal. ANESTHESIA PROVIDER: Amador Freeman CRNA. BEATER OUT: Tawny Benitez PA-C and Anjelica Flor LPN. ESTIMATED BLOOD LOSS: 10 mL. COMPLICATIONS: None. CONDITION: Stable. IMPLANTS: 1. [place] size 2 press-fit CR femur. 2. Lucas size 2 press-fit tibial base plate. 3. Lucas size 2, 11 mm CS polyethylene insert. 4. [place] size 27 x 8 mm cemented symmetric patella. DESCRIPTION OF PROCEDURE: The patient was identified in the preop holding area. Proper site was marked and identified by the surgeon. The patient was taken back to the operating theater. After adequate anesthesia, the patient's right lower extremity had a nonsterile tourniquet applied and it was sterilely prepped and draped in the usual sterile fashion. OR time-out was performed. The patient received 2 g IV Ancef. At this time, the right lower extremity was exsanguinated. Tourniquet was insufflated to 300 mmHg. Standard medial parapatellar incision was made. Medial parapatellar arthrotomy was created. Deep fibers of the MCL were raised and anterior fat pad was resected. At this time, attention was turned to the patella. Patella measured 21, it was resected to a 13 for a 27 x 8 mm patella. Drill holes were then drilled and found to be in adequate position. The drill was then drilled in the distal femur and the intramedullary distal femoral cutting guide was then placed. 8 mm was resected off the distal femur and was found to be an adequate resection. Sizing guide was placed. It was found to be a size 2 press-fit CR femur that was shown on the implant record at the beginning of this dictation. The drill holes were drilled for the epicondylar axis using [place] line and epicondyles as reference. At this time, the 4-in - 1 cutting block was placed. An anterior posterior and anterior and posterior chamfer cuts were then completed. Attention was turned to the tibia. The posterior medial lateral retractors were placed. The extramedullary tibial guide was placed. It was placed in the old footprint of the ACL. It was aligned with the center of the ankle and 0 degrees of slope, 9 mm was then resected off the unaffected side. There was found to be an acceptable reduction. At this time, posterior osteophytes were removed along with medial and lateral meniscus. A trial implant was placed with a correct sized tibia that was mentioned at the beginning of the dictation. A Lucas size 2, 11 mm CS polyethylene insert was then placed. The patient's knee was brought through range of motion. The patella was tracking centrally and was stable to varus and valgus stress. Alignment was found to be roughly at 0 degrees. The tibia was stamped and drilled in proper rotation. The universal tibial base plate was impacted in place. Next, the Lucas size 2 press-fit CR femur impacted into place and the [place] size 2, 11 mm CS polyethylene insert was placed. The patient's knee was brought into full extension. The patella was then cemented in place at this time as there is no press-fit for this size. One liter dilute Betadine solution was irrigated through the knee along with 3 L of pulse lavage irrigation with Ancef. Periarticular injection was then completed. The patient's knee was brought through a range of motion. Once the cement had time to set up and it was found to be stable to varus valgus stress, the patella was tracking centrally with full range of motion. At this time, a #2 barbed suture was used for closure of the medial parapatellar arthrotomy. Topical tranexamic acid was placed. 2-0 Vicryl was used subcutaneously, Prineo was used for the skin. The patient tolerated the procedure well and was sent to the PACU in stable condition. KRISTAL /[id number] GÉNESIS
[2018-10-04] MEDS ORDERED: Aluminum Hydroxide/Magnesium Hydroxide/Simethicone Susp 30 ML Cup PO PRN (15:08)
[2018-10-04] MEDS: Acetaminophen/oxyCODONE 325-5 MG Tab PO PRN ×2 (15:21→20:17)
[2018-10-04] MEDS: ceFAZolin 2 GM in Premix Bag 1 BAG IV SCH (16:25)
[2018-10-04] MEDS: Docusate Sodium 100 MG Cap PO SCH (20:19)
[2018-10-04] MEDS: Famotidine 20 MG Tab PO SCH (20:20)
[2018-10-04] MEDS: Carvedilol 3.125 MG Tab PO SCH (20:22)
[2018-10-04] MEDS ORDERED: Zolpidem 5 MG Tab PO SCH (21:00)
[2018-10-05] MEDS: Cyclobenzaprine 10 MG Tab PO PRN ×2 (00:14→11:45)
[2018-10-05] MEDS: ceFAZolin 2 GM in Premix Bag 1 BAG IV SCH ×2 (00:14→08:27)
[2018-10-05] MEDS: Acetaminophen/oxyCODONE 325-5 MG Tab PO PRN ×2 (04:40→11:07)
--- NOTE | 2018-10-05 06:31 | PCM.CONSN ---
- General Info Date of Service: 10/05/18 Admission Dx/Problem (Free Text): Admission Diagnosis/Problem Admission Diagnosis/Problem Osteoarthritis of knee Subjective Update: In to see Candi. She is sitting up in bed and just getting ready to have breakfast. She is very happy how well her toradol worked. She has no concerns or complaints. No nursing concerns. Functional Status: Reports: Pain Controlled, Tolerating Diet, Ambulating, Urinating, Incentive Spirometry. Denies: New Symptoms - Review of Systems General: Reports: No Symptoms. Denies: Fever, Weakness, Fatigue, Malaise HEENT: Reports: No Symptoms. Denies: Eye Pain, Headaches, Sore Throat Pulmonary: Reports: No Symptoms. Denies: Shortness of Breath, Cough, Sputum, Wheezing Cardiovascular: Reports: No Symptoms. Denies: Chest Pain, Palpitations, Dyspnea on Exertion, Lightheadedness Gastrointestinal: Reports: No Symptoms. Denies: Abdominal Pain, Constipation, Diarrhea, Nausea, Vomiting Genitourinary: Reports: No Symptoms. Denies: Pain Musculoskeletal: Reports: Leg Pain Skin: Reports: No Symptoms Neurological: Reports: No Symptoms. Denies: Confusion Psychiatric: Reports: No Symptoms - Patient Data Vitals - Most Recent: Last Vital Signs Temp 98.4 F 10/05/18 04:05 Pulse 88 10/05/18 04:05 Resp 20 10/05/18 04:05 BP 115/61 10/05/18 04:05 Pulse Ox 97 10/05/18 04:05 Weight - Most Recent: 253 lb 6.4 oz I&O - Last 24 Hours: Intake & Output 10/04/18 10/04/18 10/05/18 14:59 22:59 06:59 Intake Total 150 0 900 Output Total 700 Balance 150 0 200 Lab Results Last 24 Hours: Laboratory Results - last 24 hr 10/04/18 10/05/18 Range/Units 07:23 05:45 WBC 8.00 (3.98-10.04) K/mm3 RBC 3.42 L (3.98-5.22) M/mm3 Hgb 10.7 L (11.2-15.7) gm/L Hct 30.1 L (34.1-44.9) % MCV 88.0 (79.4-94.8) fl MCH 31.3 (25.6-32.2) pg MCHC 35.5 (32.2-35.5) g/dl RDW Std Deviation 54.0 H (36.4-46.3) fL Plt Count 166 L (182-369) K/mm3 MPV 9.2 L (9.4-12.3) fl Urine HCG, Qual Negative (NEGATIVE) Med Orders - Current: Current Medications Al Hydroxide/Mg Hydroxide (Mag-Al Plus) 30 ml PO Q4H PRN PRN Reason: Heartburn Last Admin: 10/04/18 15:22 Dose: 30 ml Aspirin (Ecotrin) 325 mg PO BID [facility] Bisacodyl (Dulcolax) 5 mg PO DAILY PRN PRN Reason: Constipation Carvedilol (Coreg) 3.125 mg PO BID [facility] Last Admin: 10/04/18 20:22 Dose: Not Given Cholecalciferol (Vitamin D3) 5,000 unit PO DAILY [facility] Cyclobenzaprine HCl (Flexeril) 10 mg PO TID PRN PRN Reason: Spasms Last Admin: 10/05/18 00:14 Dose: 10 mg Docusate Sodium (Colace) 100 mg PO BID [facility] Last Admin: 10/04/18 20:19 Dose: 100 mg Famotidine (Pepcid) 20 mg PO Q12H [facility] Last Admin: 10/04/18 20:20 Dose: 20 mg Cefazolin Sodium/Dextrose 2 gm (/ Premix) 50 mls @ 100 mls/hr IV Q8H [facility] Stop: 10/05/18 09:29 Last Admin: 10/05/18 00:14 Dose: 100 mls/hr Ketorolac Tromethamine (Toradol) 15 mg IVPUSH Q6H PRN PRN Reason: Pain Last Admin: 10/05/18 06:27 Dose: 15 mg Levothyroxine Sodium (Synthroid) 50 mcg PO DAILY@0700 [facility] Last Admin: 10/05/18 06:03 Dose: Not Given Magnesium Hydroxide (Milk Of Magnesia) 30 ml PO BID PRN PRN Reason: Constipation Morphine Sulfate (Morphine) 2 mg IVPUSH Q2H PRN PRN Reason: Breakthrough Pain Naloxone HCl (Narcan) 0.1 mg IVPUSH Q5M PRN PRN Reason: Oversedation Ondansetron HCl (Zofran) 4 mg IVPUSH Q6H PRN PRN Reason: Nausea/Vomiting Oxycodone/Acetaminophen (Percocet 325-5 Mg) 1 - 2 tab PO Q4H PRN PRN Reason: Pain Last Admin: 10/05/18 04:40 Dose: 1 tab Senna (Senna) 8.6 mg PO BID PRN PRN Reason: Constipation Sodium Chloride (Saline Flush) 10 ml FLUSH ASDIRECTED PRN PRN Reason: Keep Vein Open Zolpidem Tartrate (Ambien) 5 mg PO BEDTIME [facility] Last Admin: 10/04/18 20:21 Dose: 5 mg Discontinued Medications Acetaminophen (Tylenol) 975 mg PO ONETIME [facility] Stop: 10/04/18 12:00 Last Admin: 10/04/18 08:30 Dose: 975 mg Bupivacaine HCl (Marcaine 0.25%) Confirm Administered Dose 30 ml .ROUTE .STK- MED ONE Stop: 10/04/18 08:31 Last Admin: 10/04/18 10:39 Dose: 30 ml Cefazolin Sodium (Ancef) Confirm Administered Dose 2 gm .ROUTE .STK-MED ONE Stop: 10/04/18 08:30 Last Admin: 10/04/18 10:35 Dose: 2 gm Cefazolin Sodium (Ancef) Confirm Administered Dose 2 gm .ROUTE .STK-MED ONE Stop: 10/04/18 08:51 Morphine Sulfate 8 mg/Epinephrine HCl 0.3 mg/Cefuroxime Sodium 750 mg/Ketorolac Tromethamine 30 mg/Sodium Chloride 27.9 ml 0 mg .XX ONETIME ONE Stop: 10/04/18 09:31 Last Admin: 10/04/18 10:42 Dose: 788.3 mg Epinephrine HCl (Adrenalin) Confirm Administered Dose 1 mg .ROUTE .STK-MED ONE Stop: 10/04/18 11:25 Fentanyl (Sublimaze) Confirm Administered Dose 100 mcg .ROUTE .STK-MED ONE Stop: 10/04/18 08:50 Fentanyl (Sublimaze) 50 mcg IVPUSH Q5M PRN PRN Reason: Pain Stop: 10/04/18 15:00 Lactated Ringer's (Ringers, Lactated) 1,000 mls @ 125 mls/hr IV ASDIRECTED [facility] Last Admin: 10/04/18 08:15 Dose: 125 mls/hr Lactated Ringer's (Ringers, Lactated) Confirm Administered Dose 1,000 mls @ as directed .ROUTE .STK-MED ONE Stop: 10/04/18 08:57 Lidocaine HCl (Xylocaine-Mpf 1%) Confirm Administered Dose 4 mls @ as directed .ROUTE .STK-MED ONE Stop: 10/04/18 08:57 Lidocaine HCl (Xylocaine-Mpf 1%) Confirm Administered Dose 5 mls @ as directed .ROUTE .STK-MED ONE Stop: 10/04/18 09:01 Iodine (Iodine 2% Mild Tincture) Confirm Administered Dose 30 ml .ROUTE .STK- MED ONE Stop: 10/04/18 08:31 Last Admin: 10/04/18 10:32 Dose: 18 ml Ketorolac Tromethamine (Toradol) 30 mg IVPUSH ONETIME PRN PRN Reason: Pain Stop: 10/04/18 11:21 Last Admin: 10/04/18 12:07 Dose: 30 mg Lidocaine/Sodium Bicarbonate (Buffered Lidocaine 1% In Ns 8.4%) 0.25 ml IDERM ONETIME PRN PRN Reason: Prior to IV Start Stop: 10/04/18 16:00 Last Admin: 10/04/18 08:15 Dose: 0.25 ml Midazolam HCl (Versed 1 Mg/Ml) Confirm Administered Dose 2 mg .ROUTE .STK-MED ONE Stop: 10/04/18 08:50 Ondansetron HCl (Zofran) Confirm Administered Dose 4 mg .ROUTE .STK-MED ONE Stop: 10/04/18 08:49 Oxycodone HCl (Oxycontin) 10 mg PO ONETIME [facility] Stop: 10/04/18 12:00 Last Admin: 10/04/18 08:30 Dose: 10 mg Pregabalin (Lyrica) 50 mg PO ONETIME [facility] Stop: 10/04/18 12:00 Last Admin: 10/04/18 08:30 Dose: 50 mg Propofol (Diprivan 20 Ml) Confirm Administered Dose 200 mg .ROUTE .STK-MED ONE Stop: 10/04/18 08:50 Propofol (Diprivan 20 Ml) Confirm Administered Dose 200 mg .ROUTE .STK-MED ONE Stop: 10/04/18 09:49 Propofol (Diprivan 20 Ml) Confirm Administered Dose 200 mg .ROUTE .STK-MED ONE Stop: 10/04/18 10:17 Propofol (Diprivan 20 Ml) Confirm Administered Dose 200 mg .ROUTE .STK-MED ONE Stop: 10/04/18 10:41 Ropivacaine (Naropin 0.5%) Confirm Administered Dose 30 ml .ROUTE .STK-MED ONE Stop: 10/04/18 11:25 Tranexamic Acid (Cyklokapron) Confirm Administered Dose 1,000 mg .ROUTE .STK- MED ONE Stop: 10/04/18 08:30 Last Admin: 10/04/18 10:48 Dose: 1,000 mg Vancomycin HCl (Vancomycin) Confirm Administered Dose 1 gm .ROUTE .STK-MED ONE Stop: 10/04/18 08:30 Last Admin: 10/04/18 10:43 Dose: 1 gm - Exam Quality Assessment: DVT Prophylaxis General: Alert, Oriented, Cooperative, No Acute Distress HEENT: Pupils Equal, Pupils Reactive, EOMI, Mucous Membr. Moist/[place] Neck: Supple, Trachea Midline, No JVD Lungs: Clear to Auscultation, Normal Respiratory Effort Cardiovascular: Regular Rate, Regular Rhythm GI/Abdominal Exam: Normal Bowel Sounds, Soft, Non-Tender, No Distention, No Abnormal Bruit (Female) Exam: Deferred Back Exam: Normal Inspection, Full Range of Motion Extremities: No Pedal Edema, Normal Capillary Refill, Leg Pain, Limited Range of Motion, Other (Bandage in place on right knee. Cooling pack in place. ) Peripheral Pulses: 2+: Radial (L), Radial (R), Dorsalis Pedis (L), Dorsalis Pedis (R) Skin: Warm, Dry, Intact Neurological: No New Focal Deficit Psy/Mental Status: Alert, Normal Affect, Normal Mood Consult PN Assessment/Plan POD#: 1 Procedures: Procedures ASSAY OF TROPONIN QUANT (03/26/16) ASSAY THYROID STIM HORMONE (03/26/16) COMPLETE CBC AUTOMATED (09/21/17) COMPLETE CBC W/AUTO DIFF WBC (03/26/16) COMPREHEN METABOLIC PANEL (09/21/17) CT HEAD/BRAIN W/O & W/DYE (11/23/17) CT ORBIT/EAR/FOSSA W/O&W/DYE (11/23/17) ELECTROCARDIOGRAM TRACING (03/26/16) EMERGENCY DEPT VISIT (11/23/17) EMERGENCY DEPT VISIT (03/26/16) EXTREMITY STUDY (09/29/17) GAIT TRAINING THERAPY (09/21/17) HYDRATE IV INFUSION ADD-ON (06/24/16) MEASURE BLOOD OXYGEN LEVEL (09/21/17) MR-CARL DNA AMP PROBE (08/28/17) N BLOCK INJ FEM SINGLE (09/21/17) OT EVAL LOW COMPLEX 30 MIN (09/21/17) PT EVAL LOW COMPLEX 20 MIN (09/21/17) ROUTINE VENIPUNCTURE (09/21/17) SELF CARE MNGMENT TRAINING (09/21/17) THER/PROPH/DIAG INJ IV PUSH (11/23/17) THER/PROPH/DIAG IV INF INIT (06/24/16) THERAPEUTIC EXERCISES (09/21/17) TOTAL KNEE ARTHROPLASTY (09/21/17) TX/PRO/DX INJ NEW DRUG ADDON (11/23/17) URINALYSIS AUTO W/SCOPE (06/24/16) URINE TEST (09/21/17) X-RAY EXAM OF KNEE 1 OR 2 (09/21/17) (1) S/P total knee arthroplasty SNOMED Code(s): 3395716794788, 438205245, 5669204390083 Code(s): Z96.659 - PRESENCE OF UNSPECIFIED ARTIFICIAL KNEE JOINT Priority: High Current Visit: Yes Qualifiers: Laterality: right Qualified Code(s): Z96.651 - Presence of right artificial knee joint (2) Osteoarthritis SNOMED Code(s): 300711198 Code(s): M19.90 - UNSPECIFIED OSTEOARTHRITIS, UNSPECIFIED SITE Priority: High Current Visit: Yes Qualifiers: Osteoarthritis location: knee Osteoarthritis type: primary Laterality: right Qualified Code(s): M17.11 - Unilateral primary osteoarthritis, right knee (3) Temporal encephalocele SNOMED Code(s): 176340726 Code(s): Q01.8 - ENCEPHALOCELE OF OTHER SITES Priority: Low Current Visit : No (4) Anxiety SNOMED Code(s): 84168880 Code(s): F41.9 - ANXIETY DISORDER, UNSPECIFIED Priority: Low Current Visit: No (5) HTN (hypertension) SNOMED Code(s): 40425633 Code(s): I10 - ESSENTIAL (PRIMARY) HYPERTENSION Priority: Low Current Visit: No Qualifiers: Hypertension type: unspecified Qualified Code(s): I10 - Essential (primary ) hypertension (6) Hypothyroidism SNOMED Code(s): 11977874 Code(s): E03.9 - HYPOTHYROIDISM, UNSPECIFIED Priority: Low Current Visit : No Qualifiers: Hypothyroidism type: unspecified Qualified Code(s): E03.9 - Hypothyroidism , unspecified (7) OCD (obsessive compulsive disorder) SNOMED Code(s): 340507746 Code(s): F42.9 - OBSESSIVE-COMPULSIVE DISORDER, UNSPECIFIED Priority: Low Current Visit: No Qualifiers: Obsessive-compulsive disorder type: unspecified Qualified Code(s): F42.9 - Obsessive-compulsive disorder, unspecified Problem List Initiated/Reviewed/Updated: Yes Plan: I/P: Acute: S/P right total knee arthroplasty - post-operative day 1 -DVT prophylaxis and pain management per primary care team -PT/OT -IS/RT -Monitor oxygen saturation -Titrate oxygen as needed -Vital signs stable -Monitor labs -Pre-operative Hgb was 12.8; Now 10.7 -Pre-operative GFR was >90; Now >60 Osteoarthritis of right knee -Pain management per primary care team Chronic: Hypertension hiatal hernia recurrent UTI ovarian cyst endometriosis with endometrial ablation temporal encephalocele brain surgery 2 with craniotomy anxiety OCD hypothyroidism Plan: CM for discharge planning GI prophylaxis Home medications as indicated Other orders as listed above Routine AM labs She is a full code. Her PCP is Chrissie Madrid NP From a hospitalist standpoint Candi is doing well. She has been up ambulating and is working with therapies. She off of oxygen and has urinated. Vital signs and labs remain stable. She has been using her IS. She is cleared for discharge pending PT/OT and primary team agreement. Thank you for allowing us to participate in the care of this patient!!
[2018-10-05] MEDS ORDERED: Levothyroxine 50 MCG Tab PO SCH (07:00)
[2018-10-05] MEDS: Docusate Sodium 100 MG Cap PO SCH (08:24)
[2018-10-05] MEDS: Carvedilol 3.125 MG Tab PO SCH (08:25)
[2018-10-05] MEDS: Famotidine 20 MG Tab PO SCH (08:26)
[2018-10-05 08:27] VITALS: BP 119/48
[2018-10-05] MEDS ORDERED: Cholecalciferol (Vitamin D3) 5,000 UNIT Tab PO SCH (09:00)
[2018-10-05] MEDS ORDERED: Aspirin 325 MG Tab.EC PO SCH (09:00)
--- NOTE | 2018-10-05 09:30 | PCM48HPAN ---
Post Anesthesia Note - EVALUATION WITHIN 48HRS OF ANESTHETIC Vital Signs in Normal Range: Yes Patient Participated in Evaluation: Yes Respiratory Function Stable: Yes Airway Patent: Yes Cardiovascular Function Stable: Yes Hydration Status Stable: Yes Pain Control Satisfactory: Yes Nausea and Vomiting Control Satisfactory: Yes Mental Status Recovered: Yes - COMMENTS/OBSERVATIONS Free Text/Narrative:: Pt doing well resting in bed/ Pain well controlled. Denies any headaches, back pain, or residual numbness/tingling to LE.
== END 2018-10-05 12:30 | disposition home or self-care (01) | DRG 302 ==
LOC: JD.MS 07:16 → EDSTATUS 09:15
PROVIDERS: ADMIT Orthopaedic Surgery; ATTEND Orthopaedic Surgery
PROC: 0SRC0JA Replacement of Right Knee Joint with Synthetic Substitute, Uncemented, Open Approach (ICD-10-PCS; principal; 2018-10-04)
PROC: 3E0T3BZ Introduction of Anesthetic Agent into Peripheral Nerves and Plexi, Percutaneous Approach (ICD-10-PCS; 2018-10-04)
DX: M17.11 Unilateral primary osteoarthritis, right knee (principal); I10 Essential (primary) hypertension; E03.9 Hypothyroidism, unspecified; G89.18 Other acute postprocedural pain; M25.761 Osteophyte, right knee; F41.9 Anxiety disorder, unspecified; F42.9 Obsessive-compulsive disorder, unspecified; Z90.49 Acquired absence of other specified parts of digestive tract; Z96.652 Presence of left artificial knee joint; Z79.899 Other long term (current) drug therapy; Z98.891 History of uterine scar from previous surgery; Z87.440 Personal history of urinary (tract) infections
CPT/HCPCS: 01402; 36415; 64450; 73560-26-RT; 73560-RT; 80053; 81025; 85027; 87641; 97110-GP; 97116-GP; 97161-GP; 97165-GO; 97535-GO; A9270-GY; J0171; J0690; J0697; J1885; J2001; J2250; J2270; J2405; J2704; J2795; J3010; J3370; J3490; J7120